=== PATIENT | female | born 1945 | race Caucasian/White ===

== ENCOUNTER → 2019-07-05 08:56 | Outpatient (CLI) | payer MEDICARE, OTHER, SELFPAY ==
--- NOTE | 2019-07-05 | DI.NM.S_ITS ---
PROCEDURE: NM OSMIN PERF SPECT R&S PHARM Rest and pharmacological stress myocardial perfusion SPECT with gated imaging and ejection fraction RADIOPHARMACEUTICAL: 25.2 mCi Tc-99m tetrafosmin IV at rest and 25.8 mCi Tc-99m tetrafosmin IV at peak effect of pharmacological stress. Ywy-meu-uptaarst was performed. INDICATIONS: preprocedural cardiovascular examination TECHNIQUE: Radiopharmaceutical was injected at peak stress test, and also at rest. SPECT images were obtained. SPECT myocardial perfusion images were displayed in short axis, horizontal long axis, and vertical long axis views. Gated images were reviewed using [employer] software. COMPARISON: None. CARDIAC STRESS: A pharmacologic stress test was performed under the supervision of an attending staff, using an infusion of Lexiscan . Hemodynamic data: There is normal blood pressure and heart rate response to pharmacologic stress. Symptoms: The patient denied anginal chest pain. Aminophylline: Not required. EKG: No diagnostic changes of ischemia; no ectopy. FINDINGS: Raw data: There is good myocardial uptake of radiotracer. There is interfering subdiaphragmatic activity. No significant motion artifacts. Gtrn-vw-djgwa ratio is 0.33 (normal is less than 0.38 for tetrafosmin tracer). Left ventricle function: Gated images demonstrate normal left ventricular wall thickening. No segmental wall motion abnormalities. No transient ischemic dilation; TID is 0.67 (normal less than 1.3). Left ventricle resting end diastolic volume is 99 mL. Left ventricle stress ejection fraction is >75%; normal range is above 45%. Myocardial perfusion: There is a small area of mild, fixed perfusion defect in the apical to mid inferior wall both at rest and stress, which actually looks slightly better on stress imaging. This is adjacent to a bowel loop with interfering tracer uptake. Otherwise normal distribution of activity in the left ventricular myocardium. No reversible perfusion defects. IMPRESSION: 1) Probably normal perfusion study. 2) The small inferolateral defect appears to be artefactual and secondary to adjacent bowel loop tracer uptake. No prone imaging was performed to confirm; but normal wall thickening in the same region supports that this is related to artifact and not scar. 3) The previously described anterior wall reversible defect is no longer present. This is a low-risk study. Dictated by: Niles Womack M.D. on 07/08/2019 at 18:07 Approved by: Niles Womack M.D. on 07/08/2019 at 18:14
--- NOTE | 2019-07-05 10:21 | PM.TREADMILL ---
Cardiac Stress Test Report Referral & Results Date Patient Seen: 07/05/19 Requesting provider: Niles Womack Indication: Coronary disease Procedure Note: After both written and verbal informed consent the patient had an IV started by the diagnostic imaging RN, and then was hooked up to the treadmill monitoring system. The Lexiscan material, and then the Cardiolite tracer, were administered sequentially. An additional 3 min was spent monitoring the patient while supine on the gurney. The patient had a normal response to all infused materials. Impression: Please see perfusion imaging report for details regarding possible ischemia Please note: Actual ECG tracings can be found in the PACS system.
== END ==
PROVIDERS: Family Provider Physician Assistant; PCP Physician Assistant; Visit Provider Hospitalist
DX: Z01.810 Encounter for preprocedural cardiovascular examination (principal); I25.10 Atherosclerotic heart disease of native coronary artery without angina pectoris
CPT/HCPCS: 78452; 93016; 93017; 93018; A9502; J2785

== ENCOUNTER → 2019-09-09 13:34 | Outpatient (CLI) | payer MEDICARE, OTHER, SELFPAY ==
--- NOTE | 2019-09-09 | DI.MRI.S_ITS ---
PROCEDURE: MR KNEE RT WO CON INDICATIONS: RIGHT KNEE PAIN TECHNIQUE: Noncontrast sagittal PD fast spin echo and T2 fast spin echo with fat saturation, sagittal 3-D FLASH with fat saturation; coronal T1 spin echo and PD fast spin echo with fat saturation, and axial PD fast spin echo with fat saturation through the knee. COMPARISON: [facility], CR, XR KNEE ARTHRITIC SERIES BI, 05/31/2019, 11:34. FINDINGS: Image quality: Excellent. Menisci: There is linear and amorphous high signal intensity within the anterior horn, body, and posterior horn of the medial meniscus, demonstrating inferior to the service extension, indicating complex tearing. There is fragmentation and amorphous high signal intensity involving the anterior horn, body, and posterior horn of the lateral meniscus, Cruciate li agaments: There is chronic full-thickness tearing of the anterior cruciate ligament. Posterior cruciate ligament is intact. Medial structures: The medial collateral ligament appears intact. There is mild T2 signal elevation surrounding the medial collateral ligament. Visualized portions of the pes anserinus tendons appear normal. Small amount of medial bursal fluid. Lateral structures: The lateral collateral ligament, long and short heads of the biceps femoris tendon appear intact. The popliteus tendon appears normal. Iliotibial band appears normal. Anterior structures: The quadriceps and patellar tendons appear intact. Patellar alignment is normal. No femoral trochlear dysplasia or ventral trochlear prominence. No edema in the infrapatellar fat pad. Bones and cartilage: No bone marrow contusions or fractures. Severe tricompartmental articular osteophyte formation is present. Severe diffuse articular cartilage loss overlies the weightbearing aspects of the lateral femoral condyle and lateral tibial plateau. Severe articular cartilage loss overlies the weightbearing aspects of the medial femoral condyle. Mild articular cartilage loss overlies the weightbearing aspects of the medial tibial plateau. Moderate cartilage loss overlies the patellar apex as well as the adjacent aspects of the medial and lateral patellar facets. Joint space: There is a moderate knee joint effusion and a small Bliss's cyst. There is a small ganglion cyst along the popliteus. Normal appearing synovial plicae are incidentally noted. IMPRESSION: 1. Tricompartmental osteoarthritis with associated articular cartilage loss. 2. Chronic full-thickness anterior cruciate ligament tear. 3. Medial and lateral meniscal tearing. 4. MCL strain. 5. Knee joint effusion, Bliss's cyst, and ganglion cyst along the popliteus. 6. Medial bursitis. Dictated by: Indiana Tan M.D. on 09/09/2019 at 15:30 Approved by: Indiana Tan M.D. on 09/09/2019 at 15:38
== END ==
PROVIDERS: PCP Physician Assistant; Visit Provider Orthopaedic Surgery
DX: M25.561 Pain in right knee (principal); M17.11 Unilateral primary osteoarthritis, right knee; S83.511A Sprain of anterior cruciate ligament of right knee, initial encounter; S83.231A Complex tear of medial meniscus, current injury, right knee, initial encounter; S83.281A Other tear of lateral meniscus, current injury, right knee, initial encounter; S83.411A Sprain of medial collateral ligament of right knee, initial encounter; M25.461 Effusion, right knee; M71.21 Synovial cyst of popliteal space [Baker], right knee; M71.561 Other bursitis, not elsewhere classified, right knee
CPT/HCPCS: 73721

== ENCOUNTER 2019-10-22 06:06 | Inpatient (IN) | payer MEDICARE, OTHER, SELFPAY ==
[2019-10-10 12:51] VITALS: BMI 29.0
[2019-10-22] VITALS (16 sets, daily range): BP systolic 77–122; BP diastolic 46–73; PULSE 78–96; RESP 15–18; TEMP 36.1–36.7; O2SAT 90–98; BMI 28.1
--- NOTE | 2019-10-22 06:00 | DI.RAD.S_ITS ---
PROCEDURE: XR KNEE RT 1TO2V INDICATIONS: post op films TECHNIQUE: 2 view(s) of the knee acquired. COMPARISON: [facility], MR, MR KNEE RT WO CON, 09/09/2019, 14:11. [facility], VANNA, XR BONE LENGTH SCANOGRAM, 08/23/2019, 9:58. [facility], VANNA, XR KNEE ARTHRITIC SERIES BI, 05/31/2019, 11:34. FINDINGS: Bones: Patient is status post knee joint arthroplasty. Hardware components are in expected positions. Visualized bony structures are intact. Soft tissues: Overlying postoperative changes are noted. IMPRESSION: Postoperative knee arthroplasty changes. Dictated by: Allison East M.D. on 10/22/2019 at 10:46 Approved by: Allison East M.D. on 10/22/2019 at 10:46
[2019-10-22] MEDS: LACTATED RINGERS 1,000 ML 42 ML IV ×2 (07:00→09:05)
[2019-10-22] MEDS: VANCOMYCIN 1,000 MG/200 ML PIGGYBACK 200 MG IV (07:12)
[2019-10-22] MEDS: MELOXICAM 7.5 MG TABLET 15 MG PO (07:13)
[2019-10-22] MEDS: ACETAMINOPHEN 325 MG TABLET 975 MG PO (07:13)
--- NOTE | 2019-10-22 07:39 | PM.PREOP ---
Pre-operative Note Interval Note History & Physical reviewed/Exam performed by Physician: Yes Changes to H&P: No
--- NOTE | 2019-10-22 07:40 | PM.OP.1 ---
Operative Date/Time/Diagnoses Date of procedure: 10/22/19 Time of procedure: 07:40 Pre-op diagnosis: right knee OA Post-op diagnosis: same Procedure & Clinicians Procedure: Right total knee arthroplasty Same procedure as scheduled: Yes Indications: The patient has had progressively worsening right knee pain with radiographic changes consistent with arthritis. Non-operative management has failed and the patient has requested total knee replacement. The risks, benefits and alternatives to surgery were discussed with the patient prior to proceeding. Risks discussed included, but were not limited to, failure to relieve pain, stiffness, infection, nerve damage, deep venous thrombosis, pulmonary embolism, stroke, coma, heart attack, permanent paralysis and , as well as the potential need for eventual revision of the prosthetic. Surgeon: Sarah Cabral Pharmacy Sales Representative: Terra Campbell Anesthesia Type: General Operative Notes Findings: Severe right knee osteoarthritis, good balance Closure Type: primary Specimen(s): none sent Prosthetic devices, grafts, tissues, transplants, or devices: [employer]ral [employer] BCS 2 size 5 femur, size 5 tibia, +10 poly, 35 mm oval patella Applied: drain(s) Estimated Blood Loss (mL): 250 Blood products transfused: none Tourniquet time (min): 77 Procedure in detail: The patient was seen in the pre-operative area, where the patient identified the right knee as the operative site and this was marked with my initials. The patient received pre-operative antibiotics, and was taken to the operating room and placed on the operative table in the supine position. After satisfactory anesthesia, a time clock mechanic out was performed. The right leg was encircled with a tourniquet about the proximal thigh, and the leg was prepared from the toes to the tourniquet with ChloroPrep in the usual fashion and draped through sterile drapes. The leg was elevated and exsanguinated with Eschmark bandage and the tourniquet inflated to [250] mmHg pressure. The knee was approached through an approximately 18 cm incision centered over the patella and carried into the knee through a medial parapatellar arthrotomy. a portion of the medial and lateral meniscus was resected. Soft tissue was carefully mobilized around the patella the patella was measured with a caliper. Bone was resected from the patella and the patellar height was reconstituted with up an appropriate sized patellar component. A cover was then placed on the patella. A small amount of additional medial and lateral meniscus was resected. The visionare guide fit well to the distal femur. It looked like an appropriate distal femoral cut and the cut was made without difficulty. The rotation was assessed and the appropriate size femoral guide was placed on the distal femur and finishing cuts were made. There is no evidence of notching. The anterior, posterior and chamfer cuts were then made. The posterior osteophytes and soft tissues were then removed. The posterior capsule was injected with part of a mixture of 60 ml 0.25% Marcaine mixed with 20 ml Exparel for post operative pain control. The remainder of this mixture was injected into the capsule and subcutaneous tissues during cement curing. The tibia was prepared and the visionaire guide fit well to the distal tibia. The rotation was assessed. The patient was placed in extension residual medial and lateral meniscus as well as any residual bone was carefully resected. [No] additional tibia was resected. Hemostasis was achieved especially posteriorly. Additional local was injected into the posterior capsule. The extension gap was assessed and additional releases for gap balancing were performed as necessary. It was checked with the gap mold loft worker. A small amount of additional tibial was resected. The femoral component was trial was placed and the notch was finished. Trial tibial and femoral components were then placed and the knee placed through a range of motion. Range of motion was [0-130], with good stability throughout the range. The trials were then removed, and the tibia was finished. The bone was prepared with pulsatile lavage, and dried with a sponge. Cement was applied and the final prosthetics placed. Excess cement was removed during and after cement curing. A brief Betadine soak was performed. After confirming there was no extruded cement posteriorly, the final tibial insert was placed. The knee was copiously irrigated and the tourniquet deflated. Hemostasis was obtained with the Bovie. A drain was placed and brought out superolaterally. The capsule was closed with interrupted Vicryl suture. The subcutaneous layer was closed with barbed sutures, and the skin with a running 3-0 V-Lock suture and Surgical glue. An Aquacel Ag dressing was applied and the patient was taken to recovery having tolerated the procedure well. Complications: none Post-operative Condition: stable Disposition: Acute Care Plan for aftercare: The patient will be maintained on a standard total knee replacement protocol with weight bearing as tolerated. The patient will receive aspirin and sequential compression devices for DVT prophylaxis. The patient will be discharged home when safe for the home environment.
[2019-10-22] MEDS: CEFAZOLIN 2 GM/100 ML FROZ.PIGGY IV ×2 (07:51→15:29)
[2019-10-22] MEDS: TRANEXAMIC ACID 1,000 MG VIAL 1000 MG INJ ×2 (08:07→10:05)
--- NOTE | 2019-10-22 08:23 | SUR.OPER ---
Supine on padded OR bed. Pillow under head, arms secured on padded armboards <90 degree abduction. Safety belt across torso. Non-operative leg secured with tape over blanket over lower leg. Operative leg secured in DeMayo/Seng positioner. Foam padded brace at thigh of operative leg.
[2019-10-22] MEDS: BUPIVACAINE 0.25% W/ EPI 30 ML VIAL INJ (08:34)
[2019-10-22] MEDS: BUPIVACAINE LIPOSOME 266 MG/20 ML VIAL INJ (08:36)
[2019-10-22] MEDS: SODIUM CHLORIDE IRRIG SOLUTION 250 ML, POVIDONE-IODINE SPONGE STICKS 1 APPLIC IRR (08:37)
--- NOTE | 2019-10-22 10:30 | SUR.PHASEI ---
glucose checked with anesthesia at b.s.= 161, per anesthesia will recheck while pt. in PACU
--- NOTE | 2019-10-22 11:22 | PC.ADMIT ---
[address] Admission Note: The patient,Ana Chau,74 y/o, was given written information regarding hospital policies, unit procedures and contact persons. Patient's smoking status: Never smoker. Vital Signs - 8 hr 10/22/19 06:58 10/22/19 10:11 10/22/19 10:16 Temperature 97.8 F 98.1 F Pulse Rate 96 H 93 H 92 H Respiratory Rate 16 18 17 Blood Pressure 113/73 77/46 L 86/48 L Pulse Oximetry 98 90 L 97 10/22/19 10:20 10/22/19 10:35 10/22/19 10:49 Temperature 97.6 F Pulse Rate 87 82 89 Respiratory Rate 17 16 16 Blood Pressure 97/56 L 93/56 L 94/58 L Pulse Oximetry 98 96 94 Rec'd pt to rm 229 from PACU at 1100. Pt is AO x3, mildly drowsy but able to make needs known. Shen wrap dsg CDI. Pedal pulses present but weaker on right foot compared to left. Pt has decreased sensation but is able to move right foot. Oriented to room, routine, fall risk, use of call light. Completed admission assessment and physical assessment (see chart).
[2019-10-22] MEDS: LACTATED RINGERS 1,000 ML 125 ML IV ×2 (12:11→20:28)
[2019-10-22] MEDS: IBUPROFEN 400 MG TABLET PO ×3 (12:11→22:09)
--- NOTE | 2019-10-22 12:26 | PC.NURSE ---
Addendum entered by Crow Veloz R.N. 10/22/19 14:33: No void so far. Bladder scan performed. Shows 57 ML. Encouraged PO intake but pt c/o nausea. Administered zofran.and positioned for comfort. Will monitor. Original Note: Unclamped hemovac at 1215. Pt able to wiggle toes and move feet off bed. Denies pain. Call light in easy reach.
[2019-10-22] MEDS: ONDANSETRON 4 MG/2 ML INJ IV (14:08)
[2019-10-22] MEDS: METOCLOPRAMIDE 10 MG/2 ML INJ IV (15:29)
[2019-10-22] MEDS: NALOXONE 0.4 MG/ML VIAL IV ×2 (16:51→16:59)
--- NOTE | 2019-10-22 17:08 | PC.NURSE ---
Addendum entered by Ruthie Rizzo R.N. 10/22/19 20:33: 2030 - Pt reports feeling better, but fatigued. Snack provided. Able to take po meds without difficulty. HTN RX held r/t BP. Pt asymptomatic. monitor. Call light in reach. Bed alarm on. Original Note: 1655 - Pt with the appearance of feeling nauseated. Cool cloth to forehead. Vague complaints of feeling unwell. I don't know, I am just, blah. Narcan given x2. Pt unable to report any change. Maybe? offered crackers, pt declined. 1600 - Pt agreeable to participate in physical therapy despite persistent feeling unwell. States that she is use to being active and would like to get out of bed. 1525 - Pt c/o nausea. States that nausea increases with movement. No emesis. Zofran given by Annette FONSECA, Brendan given. Monitor.
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
[2019-10-22] MEDS: ASPIRIN EC 81 MG TABLET PO (20:22)
[2019-10-22] MEDS: DOCUSATE 100 MG CAPSULE PO (20:23)
[2019-10-22] MEDS: METFORMIN HCL 500 MG TABLET 1500 MG PO (20:23)
[2019-10-22] MEDS: ACETAMINOPHEN 325 MG TABLET 650 MG PO (20:23)
[2019-10-22] MEDS: ATORVASTATIN 20 MG TABLET 80 MG PO (20:23)
[2019-10-23 00:30] VITALS: O2SAT 96
[2019-10-23] MEDS: CEFAZOLIN 2 GM/100 ML FROZ.PIGGY IV (00:33)
[2019-10-23 00:40] VITALS: BP 97/56; PULSE 85; RESP 16; TEMP 36.5; O2SAT 95
[2019-10-23 04:00] VITALS: BP 90/56; PULSE 78; RESP 16; TEMP 36.7; O2SAT 97
[2019-10-23] MEDS: IBUPROFEN 400 MG TABLET PO ×2 (04:13→08:28)
[2019-10-23] MEDS: LACTATED RINGERS 1,000 ML 125 ML IV (04:14)
[2019-10-23 04:29] VITALS: O2SAT 95
[2019-10-23 05:10] LABS: Hematocrit 30.7 % (36-46); Hemoglobin 10.4 g/dL (12.0-16.0)
--- NOTE | 2019-10-23 07:35 | PT.IPTN ---
Current Diagnoses Unilateral primary osteoarthritis, right knee (10/22/19) Surgery Performed Operation Date: 10/22/19 07:45 Actual Procedures p Total Knee Arthroplasty(Right) - Sarah Cabral MD Physical Therapy Treatment Note M2 PT-IP Current Condition Start: 10/22/19 14:22 Freq: NEEDED Status: Active Protocol: Document 10/22/19 16:56 AW (Rec: 10/22/19 17:15 AW [id number]) Physical Therapy Current Condition Current Condition Evaluation Date 10/22/19 Treatment Diagnosis R TKA, impaired mobility Onset Date 10/22/19 Weight Bearing Status Weight Bearing Status Weight Bear as Tolerated M3 PT-IP Subjective Start: 10/22/19 14:22 Freq: NEEDED Status: Active Protocol: Document 10/23/19 07:35 SP (Rec: 10/23/19 08:19 SP [id number]) Subjective Physical Therapy Visit Type Type Treatment Note Visit Start Time 07:35 Visit Stop Time 08:01 Total Visit Minutes 26 Number of FACILITIES PLANT ENGINEER Visits 1 Physical Therapy Visit Comments Patient Comments Pt willing to work with PT this am. Patient Goals Pt hopes to discharge home with spouse assist. Therapy Pain Assessment Pain When Pain Assessed During Mobility Pain Present Pain Present Pain Reported Location Left Hip Intensity 2 Pain Behaviors Facial Grimacing Pain Management Techniques Re-positioning,Timing of Activity with Medications M4 PT-IP Mobility and Gait Start: 10/22/19 14:22 Freq: NEEDED Status: Active Protocol: Document 10/23/19 07:35 SP (Rec: 10/23/19 08:19 SP [id number]) PT-Bed Mobility Assessment Supine to Sit Supine to Sit Minimal Assistance Scooting Scooting to Edge of Bed Standby Assistance PT-Transfer Assessment Sit to and From Stand Sit to and from Stand Contact Guard Assistance,Use of Upper Extremities Equipment Transfer Assistive Device Gait Belt,Front Wheeled Walker Transfers Transfer Destination Chair Transfer Technique Pt ambulated with FWW Transfer Ability Level of Assist Contact Guard Assistance,Use of Upper Extremities Comments Mobility Comments Supine to sit SBA with HOB elevated 20deg, min A for support of RLE to EOB, scoot SBA usign BUE. Sit to stand CGA using fWW with good hand placement from bed and FWW. SPT bed to chair step pivot using FWW CGA with assist for IVpole mgt. Pt good hand placement and body with FWW repostioning awarness turns and backing up to chair with slow descent after walk in room. Pt was up in chair with call light and all needs in reach when left. Gait Assessment Gait Gait Assistance Required: Contact Guard Assist Distance (Feet) 20 Able to Maintain Weight Bearing Status Yes During Gait Assistive Devices Assistive Device Gait Belt,Front Wheeled Walker Gait Deviations General Gait Pattern Step-to Gait Factors Limiting Gait Function Factors Limiting Gait Function Decreased Activity Tolerance, Decreased Strength,Limited Range of Motion,Pain Comments Gait Comments Pt was ableto step pivot bed to chair using fWW then walk chair to door and back approx 20 ft using FWW cGA, therapist managed IV pole, stable with good gait phases, knee flexion heel toe. Encourage step over step for normal gait. Stair Climbing Assessment Comments Stair Climbing Comments Not assessed, will assess after lunch today along with caregiver training. PT-Balance Assessment Sitting Balance and Reactions Static Sitting Balance Ability Good Dynamic Sitting Balance Ability Good Standing Balance and Reactions Static Standing Balance Ability Good Dynamic Standing Balance Ability Fair Device Used FWW M5 PT-IP Objective Assessments Start: 10/22/19 14:22 Freq: NEEDED Status: Active Protocol: Document 10/22/19 16:56 AW (Rec: 10/22/19 17:15 AW [id number]) Orientation Orientation/Cognition Level of Alertness Lethargic Orientation Name,Day of Week,Place, Situation Language Function Ability No Deficits Noted Safety Awareness Understands Safety Issues Memory Description No Deficits Noted Gross Range of Motion Lower Extremity ROM Assessment Right Impaired Strength Lower Extremity Strength Assessment Bilaterally Impaired Hip B 4-/5 Ankle B 4/5 Sensation Assessment Sensation Gross Sensation WNL M6 PT-IP Treatment Start: 10/22/19 14:22 Freq: NEEDED Status: Active Protocol: Document 10/23/19 07:35 SP (Rec: 10/23/19 08:19 SP [id number]) Physical Therapy Treatment Exercises Exercises Ankle Pumps,Gluteal Sets,Quad Sets,Heel Slides,Seated Knee Flexion/Extension Education Education Provided Precautions,Weight Bearing Status,Post-Op Packet,Safety M7 PT-IP Assessment and Plan Start: 10/22/19 14:22 Freq: NEEDED Status: Active Protocol: Document 10/23/19 07:35 SP (Rec: 10/23/19 08:19 SP [id number]) PT Summary Assessment and Plan Potential Rehabilitation Potential Good Status of Condition at Evaluation Evolving Summary Impairments ROM,Strength,Balance,Bed Mobility,Transfers,Gait, Activity Tolerance Assessment Summary Pt required Min A for RLE to EOB then SBA scoot to EOB, CGA durign rest of mobiltiy using FWW. Stable vitals: sup 105/ 61 HR 83 bpm 97% on room air, seated 127/75, stand 121/58. Pt was ableto ambulate to door and back CGA usign FWW. Will assess 4WW and stairs in afternoon along with caregiver training in the afternoon for assess safe DC with spouse. PT anticipates pt will progress in follow up sessions and be safe to discharge home with spouse assist and outpatient PT. Will continue to assess. Goals Bed Mobility Goal Standby Assistance Transfer Goal Standby Assistance,Front Wheeled Walker,Four Wheeled Walker Gait Goal Standby Assistance,Front Wheel Walker,Four Wheel Walker Gait Distance 150 Other Goals - up/down 5 steps with right rail ascending and SPC in opposite hand SBA Days to Meet Goals 3 Frequency of Treatment Frequency Of Treatment Twice a Day Treatment Plan Physical Therapy Treatment Plan Bed Mobility Training,Transfer Training,Gait Training, Therapeutic Exercise,Balance Retraining,Post Op Education, Discharge Planning,Hot or Cold Pack,Neuromuscular Re-ed, Coordination Retraining,Manual Therapy Other Recommendations and Next Treatment assess gait with FWW and 4WW ( Focus pt's 4WW in room); review ther ex for form and dosing; trial stairs and conduct caregiver training if able Recommendations To Nursing Amount of Assist Needed 1 Person Assist Discharge Recommendations PT Discharge Recommendations Home with Assistance, Outpatient PT Equipment Needed for Home Before tub transfer bench Discharge Transportation Needs at Discharge Private Vehicle
[2019-10-23 07:54] VITALS: BP 102/59; PULSE 76; RESP 16; TEMP 36.3; O2SAT 96
[2019-10-23] MEDS: DOCUSATE 100 MG CAPSULE PO (08:28)
[2019-10-23] MEDS: ACETAMINOPHEN 325 MG TABLET 650 MG PO (08:28)
[2019-10-23] MEDS: ASPIRIN EC 81 MG TABLET PO (08:28)
--- NOTE | 2019-10-23 08:35 | PM.PNPO.1 ---
Subjective Subjective Date Patient Seen: 10/23/19 Time Patient Seen: 08:13 Interval history: POD #1 s/p RTKA with Dr. Cabral. Patient is doing well. Had nausea yesterday when mobilizing with PT, resolved with zofran. Voiding without difficulty or assistance. Minimal pain in right knee. Denies fever, chills, chest pain, shortness of breath, nausea, vomiting, pain in calves Exam Vital Signs (past 8 hours): - 10/23/19 00:40 10/23/19 04:00 10/23/19 04:29 Temperature 97.7 F 98.0 F Pulse Rate 85 78 Respiratory Rate 16 16 Blood Pressure 97/56 L 90/56 L Pulse Oximetry 95 97 95 10/23/19 07:54 Temperature 97.3 F L Pulse Rate 76 Respiratory Rate 16 Blood Pressure 102/59 L Pulse Oximetry 96 Oxygen Delivery Method Room Air Oxygen Flow Rate 0 Narrative Exam Narrative: 75 year old female is laying comfortably in bed, in no apparent distress. A&Ox3. Aquacel dressing is CDI, hemovacc in place, SCDs in place. Able to actively dorsiflex/plantar flex LE BL. Sensory function grossly intact to light touch in LE BL. Dorsalis pedis 2+ BL. Calves warm, soft, compressible, non tender to palpation. Objective Labs Result Diagrams: 10/23/19 04:40 Labs: Laboratory Results - last 24 hr 10/22/19 10/23/19 11:15 04:40 Hgb 10.4 L Hct 30.7 L Nasal Screen MRSA (PCR) Negative for mrsa Assessment & Plan Post-op Postoperative Procedures: Procedures Operation Date: 10/22/19 07:45 Actual Procedures Side Surgeon p Total Knee Arthroplasty Right Sarah Cabral MD Postoperative plan: discharge Postoperative plan narrative: Patient is doing well, may discharge home today pending PT clearance Clamp hemovacc drain for 2 hours prior to discharge, then discontinue Continue current pain management Continue SCDs for DVT prophylaxis Time Spent With Patient Time with patient: less than 15 minutes
--- NOTE | 2019-10-23 08:50 | PC.NURSE ---
Addendum entered by Crow Veloz R.N. 10/23/19 13:53: Student nurse d/c'd hemovac and PIV with skilled nursing case manager. Pt worked with WHITTLING ROOM OPERATOR and practiced stairs. Pt is motivated to d/c home CB. Original Note: Pt doing well. Up with PT this AM with CGA and FWW. Pt overall denies pain and is mobilizing well. Denies nausea this AM. Clamped hemovac at 0840. Plan is for pt to work with PT again today and d/c hemovac after being clamped x2 hours.
--- NOTE | 2019-10-23 11:47 | CM.DANOTE ---
DCP/Assessment: Reviewed chart. Patient is a 74yr old female admitted for right TKA performed on 10-22-[address] Cabral. Primary payor is 1)Medicare 2)[employer]. PCP listed is Rose Liao. Met with patient explained CM/SW role. Patient reports that she plans to d/c home today. Patient has supportive spouse at home and plans to do outpatient therapy at [facility]. Patient uses walker at baseline and no d/c planning needs identified. P: Home today. MARNIE Platt Discharge Planning/Care Management Advanced directive, confirm from FAMILY Start: 10/22/19 12:00 Freq: Q24H Status: Active Protocol: Document 10/22/19 12:00 JLN (Rec: 10/22/19 12:02 YOAN [id number]) Advance Directive, confirm on record Time 11:00 Person contacted patient Copy received No CM Discharge Assessment Start: 10/23/19 11:39 Freq: Status: Active Protocol: Document 10/23/19 11:40 KJS (Rec: 10/23/19 11:47 KJS [id number]) Discharge Planning Assessment Assigned Residential Carpenter MARNIE Platt Contact Information Alhaji Chau (spouse) [phone] Advance Directives? Yes Advance Directives on File No History Provided By Patient,Family Member,Medical Record Has Patient been admitted in last 30 No days? Prior Living Arrangements House Household Members spouse,children Type of transporation used prior to Drives own vehicle admit Independent with ADL's Yes Is patient alert and oriented? Yes Caregiver for Another Yes DME Already Rented / Owned FWW / Walker Patient/Family Preference OP PT Therapy Barriers to Discharge No Discharge Plan Home Transportation Arrangement Spouse provided transport. Referrals Initiated None needed Whiteboard Updated in Patient Room with Yes name and ext. # of Residential Carpenter Review Status In Process Next Review Type Continued Stay Review Pre-Anesthesia Assessment Start: 10/10/19 12:50 Freq: Status: Complete Protocol: Document 10/10/19 12:51 CAB (Rec: 10/10/19 13:51 CAB [id number]) Pre-Anesthesia Assessment Patient Information Reviewed Via Phone Assessment Assessment Completed With Patient H&P Completed Within 30 Days Yes Diagnostic Results BMP/CMP,CBC,EKG Comment Outside labs/EKG scanned to record Primary Care Provider Arsenio Harris Medical Clearance Received Yes Seen Specialist in Last 12 Months Yes Specialist Seen Basketball Player,Alarm Operator, Orthopedist Comment PCP clearance 08/13/19 scanned to record Primary Language Faroese Fish Cutting Machine Operator Required No Height 170.18 cm Weight 83.915 kg Body Mass Index (BMI) 29.0 Hearing Ability Normal Visual Assist Glasses Dentition Type Teeth, Natural Present,Full- Upper Barriers to Learning None Other Aids No Hx Anesthesia Reactions No Hx Family Anesthesia Reaction No Hx Malignant Hyperthermia No Hx Blood Transfusions No Anesthesia Review Requested Yes: Surgeon requested re: Cardiac history alcohol intake never Smoking Status Never smoker Substance Use Type does not use Pain Present Pain Reported Musculoskeletal Symptoms Abnormal Gait,Difficulty Walking,Joint Pain,Limited Range of Motion,Numbness History of Falling (Recent or History of No ) Patient is completely paralyzed or No completely immobile Prosthesis or Orthotic Device Front Wheel Walker Mental Status Oriented to own ability Is patient on oxygen? No Does patient have BARRON/SOB No Hx Sleep Apnea No Currently Taking a Beta Clarence No Can You Climb a Flight of Stairs Without No SOB Hx Chest Pain No Hx SOB No Hx Syncope or Dizziness No Anti-Coagulant Therapy Yes: 81mg ASA only-pt will check to see if she is to hold or continue Has a Basketball Player Yes: Cardiac Testing Yes: Nuc scan 07/05/19 @ [facility]-low risk study Hx Pacemaker/ICD No Pacemaker Rep Required? No Cardiac Clearance Received Yes Diet Type At Home Regular dysphagia No Urinary Catheter Present No Hx Urinary Self Catheterization No Diabetes Yes: Does not check blood sugars at home HgbA1C 6.5 Date 08/13/19 Patient No Lactating No Presence of External or Internal Medical Yes: Cardiac stent, plate left Devices ankle Have you traveled outside the [facility] States in the last 30 days? Marital Status Lives With spouse,children Prior Living Arrangements House Number of Floors (Floors) Two Floors Support System Spouse Does the Patient Have Assistance After Yes Surgery Patient Discharge Plan Description Return Home Comment Pt advised 1-2 day length of stay per surgeon Feels Safe in Current Environment Yes Been Physically Hurt or Threatened By a No Person in Current Environment Do you have thoughts of harming yourself None or others? Are you currently considering suicide? No Do you have a plan to hurt yourself or No Plan others? Do You Have Any Spiritual Beliefs That No May Affect Your HC Choices? Do You Have Any Cultural Practices That No May Affect Your HC Choices? Comment Chris Who Can We Speak to About Patient's Care Family, friends Identifying Code for Release of Patient Declines to issue Information Health Care Proxy/Next of Kin Alhaji () Health Care Proxy Emergency Contact Name Alhaji () Emergency Contact Advance Directives? Yes Advance Directives on File No Requested Patient Bring Advanced Yes Directives DOS Power of Smalltalk Developer No PAC Instructions Do not shave/clip surgical site,Durable medical equipment ,Medications to take/avoid, Nasal antibiotic,No ETOH/ petroleum product on skin DOS, NPO,Post-op transportation,Pre -surgical wash,Sturdy shoes/ comfortable clothes,Do not bring valuables and remove jewelry
--- NOTE | 2019-10-23 13:49 | PT.IPTN ---
Current Diagnoses Unilateral primary osteoarthritis, right knee (10/22/19) Surgery Performed Operation Date: 10/22/19 07:45 Actual Procedures p Total Knee Arthroplasty(Right) - Sarah Cabral MD Physical Therapy Treatment Note M2 PT-IP Current Condition Start: 10/22/19 14:22 Freq: NEEDED Status: Active Protocol: Document 10/22/19 16:56 AW (Rec: 10/22/19 17:15 AW [id number]) Physical Therapy Current Condition Current Condition Evaluation Date 10/22/19 Treatment Diagnosis R TKA, impaired mobility Onset Date 10/22/19 Weight Bearing Status Weight Bearing Status Weight Bear as Tolerated M3 PT-IP Subjective Start: 10/22/19 14:22 Freq: NEEDED Status: Active Protocol: Document 10/23/19 13:01 SP (Rec: 10/23/19 14:12 SP [id number]) Subjective Physical Therapy Visit Type Type Treatment Note Visit Start Time 13:01 Visit Stop Time 13:49 Total Visit Minutes 48 Notes Spouse Alhaji completed caregiver training withpatient including gait belt donned, transfer, gait, stair mgt. Number of GROUND WORKER Visits 2 Physical Therapy Visit Comments Patient Comments Pt willing to work with PT. Patient Goals Pt plans to DC today with . Therapy Pain Assessment Pain When Pain Assessed During Mobility Pain Present Pain Present Pain Reported Location Left Hip Intensity 2 Pain Behaviors Facial Grimacing Pain Management Techniques Apply Cold,Re-positioning M4 PT-IP Mobility and Gait Start: 10/22/19 14:22 Freq: NEEDED Status: Active Protocol: Document 10/23/19 13:01 SP (Rec: 10/23/19 14:12 SP [id number]) PT-Bed Mobility Assessment Sit to Supine Sit to Supine Standby Assistance Scooting Scooting Up and Down in Bed Standby Assistance PT-Transfer Assessment Sit to and From Stand Sit to and from Stand Standby Assistance,Contact Guard Assistance,Use of Upper Extremities Equipment Transfer Assistive Device Gait Belt,4 Wheeled Walker Orthotic/Prosthetic Devices or Brace: No Transfers Transfer Destination Bed,Wheelchair Transfer Technique Pt ambulated using 4WW. Transfer Ability Level of Assist Standby Assistance,Contact Guard Assistance,Use of Upper Extremities Comments Mobility Comments Pt was up in chair when arrived, spouse Alhaji in room. Caregiver training completed including gait belt donned properly, provided SBA-CGA educated safety brake mgt with 4WW with good demonstration using proper hand placement BUE pushing from chair arms to stand. Pt complete multiple sit to stands and SPT usign 4WW with proper positioning and 4WW brake mgt post education follow through in to w/c while out for a walk and stair mgt. Sitting to supine on R side of bed with RLE helping RLE into bed and centering and scooting up in bed SBA no assist required from spouse for bedmobility. Pt was in bed with call light and all needs in reach when left. GROUND WORKER discussed progress made with nursing for safe DC home today when medically cleared. Gait Assessment Gait Gait Assistance Required: Contact Guard Assist Distance (Feet) 75 Able to Maintain Weight Bearing Status Yes During Gait Assistive Devices Assistive Device Gait Belt,4 Wheeled Walker Gait Deviations General Gait Pattern Antalgic,Decreased Stride Length,Decreased Feet Clearance,Flexed Trunk,Step-to Gait Factors Limiting Gait Function Factors Limiting Gait Function Decreased Activity Tolerance, Decreased Strength,Limited Range of Motion,Pain Comments Gait Comments Pt was able to walk chair into hallway further distance using 4WW 75 ft x2 with w/c follow secondary to decreased activity tolerance and strength, spouse provided CGA for safety, patient demonstrated WB through LUE > RUE but good brake mgt during each step, stable and safe using at home, not recommending need of FWW. Educated patient and spouse importance of R knee bend and heel toe gait to continue to progress toward normal gait patterning and decrease R hip elevation during advancement. Stair Climbing Assessment Evaluation Level of Assist On Stairs Contact Guard Assistance,1 Person Assistance Devices Stair Climbing Assistive Devices Straight Cane,Left Railing, Right Railing Technique/Endurance Stair Climbing Direction Ascend and Descend Stair Climbing Technique Step to Step Number of Steps Climbed 3 Stair Climbing Set # Repetitions (reps) 2 Comments Stair Climbing Comments Pt was ableto ascend and descend 3 stairs using BHR initially to assimulate outside home environment then assessed inside home stair mgt RHR and SPC in LUE CGA on second set of stairs with CGA provided by spouse and good cuing of awareness of R knee flexion to assist foot clearance and ascend to next step with good follow through demonstration. PT-Balance Assessment Sitting Balance and Reactions Static Sitting Balance Ability Good Dynamic Sitting Balance Ability Good Standing Balance and Reactions Static Standing Balance Ability Good Dynamic Standing Balance Ability Fair Device Used 4WW M5 PT-IP Objective Assessments Start: 10/22/19 14:22 Freq: NEEDED Status: Active Protocol: Document 10/22/19 16:56 AW (Rec: 10/22/19 17:15 AW [id number]) Orientation Orientation/Cognition Level of Alertness Lethargic Orientation Name,Day of Week,Place, Situation Language Function Ability No Deficits Noted Safety Awareness Understands Safety Issues Memory Description No Deficits Noted Gross Range of Motion Lower Extremity ROM Assessment Right Impaired Strength Lower Extremity Strength Assessment Bilaterally Impaired Hip B 4-/5 Ankle B 4/5 Sensation Assessment Sensation Gross Sensation WNL M6 PT-IP Treatment Start: 10/22/19 14:22 Freq: NEEDED Status: Active Protocol: Document 10/23/19 13:01 SP (Rec: 10/23/19 14:12 SP [id number]) Physical Therapy Treatment Education Education Provided Precautions,Weight Bearing Status,Post-Op Packet,Safety Other Treatments Other Treatment Performed GROUND WORKER educated patient and spouse importance of continued performance of exercises including knee flexion and extension to progress in ROM and walking around every hour at home to continue strength until outpatient appt next week, verbal confirmation. M7 PT-IP Assessment and Plan Start: 10/22/19 14:22 Freq: NEEDED Status: Active Protocol: Document 10/23/19 13:01 SP (Rec: 10/23/19 14:12 SP [id number]) PT Summary Assessment and Plan Potential Rehabilitation Potential Good Status of Condition at Evaluation Evolving Summary Impairments ROM,Strength,Balance,Bed Mobility,Transfers,Gait, Activity Tolerance Assessment Summary Pt required SBA sit>supine, CGA sit to stand, gait and stair mgt using 4WW, and stair mgt BHR or R HR and SPC LUE. Pt was able to ambulate further distance 75 ft x2 using 4WW, CGA from provided and w/c follow seondary to decreased strength and edurance to get to stairs . Pt is ok to DC with spouse to assist at home and recommending outpatient PT when medically cleared. Goals Bed Mobility Goal Standby Assistance Transfer Goal Standby Assistance,Front Wheeled Walker,Four Wheeled Walker Gait Goal Standby Assistance,Front Wheel Walker,Four Wheel Walker Gait Distance 150 Other Goals - up/down 5 steps with right rail ascending and SPC in opposite hand SBA Days to Meet Goals 3 Frequency of Treatment Frequency Of Treatment Twice a Day Treatment Plan Physical Therapy Treatment Plan Bed Mobility Training,Transfer Training,Gait Training, Therapeutic Exercise,Balance Retraining,Post Op Education, Discharge Planning,Hot or Cold Pack,Neuromuscular Re-ed, Coordination Retraining,Manual Therapy Other Recommendations and Next Treatment assess gait with FWW and 4WW ( Focus pt's 4WW in room); review ther ex for form and dosing; trial stairs and conduct caregiver training if able- completed pm Recommendations To Nursing Amount of Assist Needed Standby Assistance Discharge Recommendations PT Discharge Recommendations Home with Assistance, Outpatient PT Equipment Needed for Home Before tub transfer bench Discharge Transportation Needs at Discharge Private Vehicle
--- NOTE | 2019-10-23 14:34 | PC.NURSE ---
Pt dc'd to home per MD order. Provided d/c education re knee precautions, medication regimen, follow up instructions, when to seek emergency medical treatment. Pt and verbalize understanding. Pt dressed self with min assist from her . Transferred to w/c and escorted to POV by SN via w/c in no acute distress with all belongings.
== END 2019-10-23 14:30 | disposition home or self-care (01) | DRG 470 ==
LOC: AC 07:45 → ICU 08:19
PROVIDERS: Admitting Provider Orthopaedic Surgery; PCP Physician Assistant; Referring Provider Orthopaedic Surgery; Visit Provider Orthopaedic Surgery
PROC: 0SRC0JZ Replacement of Right Knee Joint with Synthetic Substitute, Open Approach (ICD-10-PCS; CPT 27447; principal; 2019-10-22 07:45)
DX: M17.11 Unilateral primary osteoarthritis, right knee (principal); I10 Essential (primary) hypertension; E78.5 Hyperlipidemia, unspecified; E11.9 Type 2 diabetes mellitus without complications; Z79.84 Long term (current) use of oral hypoglycemic drugs; I25.10 Atherosclerotic heart disease of native coronary artery without angina pectoris; M21.061 Valgus deformity, not elsewhere classified, right knee; Z95.818 Presence of other cardiac implants and grafts
CPT/HCPCS: 36415; 73560; 82962; 85014; 85018; 87797; 97110; 97116; 97161; 97530; C1776; C9290; J0690; J1100; J2250; J2274; J2310; J2405; J2704; J2765; J3010

== ENCOUNTER → 2020-06-19 10:54 | Outpatient (CLI) | payer MEDICARE, OTHER, SELFPAY ==
[2019-10-22 11:00] VITALS: BMI 28.1
--- NOTE | 2020-06-19 | DI.MRI.S_ITS ---
PROCEDURE: MR LUMBAR SPINE WO CON INDICATIONS: Radiculopathy, lumbar region TECHNIQUE: Noncontrast sagittal T1 spin echo and T2 fast echo, sagittal STIR, axial T1 and T2 fast spin echo through the lumbar spine. In cases with scoliosis, additional coronal T2 fast spin echo may be performed. COMPARISON: [facility] [place], CR, XR LUMBAR SPINE 2 OR 3 VIEWS, 06/10/2020, 10:02. [facility], MR, L-SPINE WITHOUT CONTRAST, 05/21/2013, 14:34. FINDINGS: Image quality: Excellent. Alignment and Curvature: There is mild L4-L5 anterolisthesis. There is trace L2-L3 retrolisthesis. Convex left curvature of the lumbar spine is noted. Bone Marrow: Reactive endplate changes noted adjacent to the L3-L4 and L4-L5 discs. No acute vertebral body compression fractures. Spinal Cord: Conus medullaris terminates at the L1-2 disc level. Visualized cord demonstrates normal signal and size. Paraspinous Soft Tissues: No paravertebral masses. Large exophytic, partially visualized right renal cyst. L1-L2: Loss of disc signal and height. Moderate, diffuse disc bulge. Mild bilateral facet hypertrophy. Mild narrowing of the central canal. Mild left neural foraminal narrowing. No neural compression. L2-L3: Loss of disc signal and height. Moderate, diffuse disc bulge. Mild bilateral facet hypertrophy. Mild narrowing of the central canal. Moderate right and mild left neural foraminal narrowing. No neural compression. L3-L4: Loss of disc signal and height. Mild to moderate diffuse disc bulge. Mild facet and mild ligamentum flavum hypertrophy. Moderate narrowing of the central canal. Moderate bilateral neural foraminal narrowing. No neural compression. L4-L5: Loss of disc signal and height. Moderate, diffuse disc bulge. Severe bilateral facet hypertrophy. Severe ligamentum flavum hypertrophy. Severe narrowing of the central canal with compression of the nerve roots of the cauda equina. Moderate bilateral neural foraminal narrowing. There is a large 0.9 x 0.8 x 1.9 centimeter synovial cyst projecting off the medial margin of the right facet. Synovial cyst cyst is oriented medially and superiorly and displaces the nerve roots of the cauda equina at the level of the L4 vertebral body. L5-S1: Loss of disc signal and height. Mild, diffuse disc bulge. Moderate right and severe left facet hypertrophy. Mild to moderate narrowing of the central canal. Severe bilateral neural foraminal narrowing with compression of the exiting L5 nerve roots. Bilateral L2-L3 Tarlov cysts. IMPRESSION: 1. Grade 1 L4-L5 degenerative spondylolisthesis. 2. Multilevel degenerative disc disease. 3. Multilevel facet arthropathy. 4. Severe L4-L5 central canal narrowing with compression of the nerve roots of the cauda equina. 5. Severe bilateral L5-S1 neural foraminal narrowing with compression of the exiting bilateral L5 nerve roots. 6. Large right L4-L5 facet synovial cyst. Dictated by: Cyndy Mcguire MD, PhD on 06/19/2020 at 12:47 Approved by: Cyndy Mcguire MD, PhD on 06/19/2020 at 12:54
== END ==
PROVIDERS: PCP Physician Assistant; Referring Provider Orthopaedic Surgery; Visit Provider Orthopaedic Surgery
DX: M43.16 Spondylolisthesis, lumbar region (principal); M51.16 Intervertebral disc disorders with radiculopathy, lumbar region; M51.17 Intervertebral disc disorders with radiculopathy, lumbosacral region; M47.26 Other spondylosis with radiculopathy, lumbar region; M47.27 Other spondylosis with radiculopathy, lumbosacral region; M48.061 Spinal stenosis, lumbar region without neurogenic claudication; M48.07 Spinal stenosis, lumbosacral region; M71.38 Other bursal cyst, other site
CPT/HCPCS: 72148

== ENCOUNTER → 2020-10-26 09:37 | Outpatient (CLI) | payer MEDICARE, OTHER, SELFPAY ==
[2019-10-22 11:00] VITALS: BMI 28.1
[2020-10-26 11:14] LABS: COVID19 -Nasal RAPID Negative (Negative)
== END ==
PROVIDERS: PCP Physician Assistant; Visit Provider Nurse Practitioner Family
DX: Z01.812 Encounter for preprocedural laboratory examination (principal); Z20.822 Contact with and (suspected) exposure to COVID-19
CPT/HCPCS: 87635; C9803

== ENCOUNTER 2020-10-27 05:56 | Day surgery (SDC) | payer MEDICARE, OTHER, SELFPAY ==
[2019-10-22 11:00] VITALS: BMI 28.1
[2020-10-27] VITALS (20 sets, daily range): BP systolic 86–144; BP diastolic 52–81; PULSE 55–103; RESP 14–22; TEMP 35.9–36.9; O2SAT 92–100; BMI 28.8
[2020-10-27] MEDS: LACTATED RINGERS 1,000 ML 42 ML IV ×2 (07:05→10:07)
[2020-10-27] MEDS: VANCOMYCIN 1,000 MG/200 ML PIGGYBACK 200 MG IV (07:06)
--- NOTE | 2020-10-27 07:36 | P.OP_ITS ---
Operative Date/Time/Diagnoses Date of procedure: 10/27/20 Time of procedure: 07:59 Pre-op diagnosis: left hip OA Post-op diagnosis: same Procedure & Clinicians Procedure: left total hip arthroplasty Same procedure as scheduled: Yes Indications: The patient has had progressively worsening left hip pain with radiographic changes consistent with arthritis. Non-operative management has failed and the patient has requested total hip replacement. The risks, benefits and alternatives to surgery were discussed with the patient prior to proceeding. Risks discussed included, but were not limited to, failure to relieve pain, leg length discrepancy, dislocation, stiffness, infection, nerve damage, deep venous thrombosis, pulmonary embolism, stroke, coma, heart attack, permanent paralysis and , as well as the potential need for eventual revision of the prosthetic. Surgeon: Sarah Cabral Combination Machine Tool Setter: Rob Hernandez Click Yes if Unassisted: Yes Anesthesia Type: General and Spinal Operative Notes Findings: severe left hip arthritis, adequate stability, soft bone Closure Type: primary Prosthetic devices, grafts, tissues, transplants, or devices: Cabral and Nephew 52 R3 acetabulum, 14 Synergy standard offset, +0 36 head, one 20mm screw Applied: drain(s) Estimated Blood Loss (mL): 250 Blood products transfused: none Procedure in detail: The patient was seen in the pre-operative area, where the patient identified the left hip as the operative site and this was marked with my initials. The patient received pre-operative antibiotics and was taken to the operating room and placed on the operative table in the right lateral decubitus position after satisfactory anesthesia. A realtime captioner out was performed. The left leg was prepared from the ankle to the iliac crest with ChloroPrep in the usual fashion and draped through sterile drapes. The hip was approached through an approximately 20 cm incision centered over the greater trochanter and curving gently posteriorly as it went proximally. This was carried sharply to the fascia owen, which was divided and retracted with a self retaining retractor. The trochanteric bursa was excised with care being taken to avoid the sciatic nerve, which was identified and protected throughout the case. The short external rotators were incised and the capsulomuscular flap was raised and tagged for later repair. The hip was dislocated, and a femoral neck osteotomy performed approximately 15 mm above the lesser trochanter. Retractors were placed around the femur. The canal was opened with a box cutting osteotome, followed by a T handled reamer and a lateralizing reamer. The chili pepper broach was then used, followed by sequential broaching until there was good stability of the broach in the femur. she had soft bone and I decided to go with a Synergy. Good stability was achieved. Retractors were placed to expose the acetabulum. The labrum and central soft tissues were removed. Reaming was performed initially going up in 2 mm increments, then 1 mm increments until good bite was obtained with an odd sized reamer. The cup 1 mm larger than the last reamer was then inserted using the appropriate anteversion guides. it was further stabilized with a single screw. A trial neutral liner was placed. The broach was placed in the canal. A trial head and neck were then placed and the hip relocated and checked for leg length and stability. An intraoperative film confirmed the component position and no evidence of fracture. The patient was stable in the position of sleep, of squatting, and could be put through a range of motion with 45 degrees internal rotation without dislocation. At 90 degrees flexion, internal rotation to 70 Degrees was possible before dislocation. This was felt to be satisfactory and the appropriate components were opened, and the trials were removed. The acetabular liner was impacted into position. The final stem was then impacted into the prepared femoral canal. A brief Betadine soak was performed while trialing with head options. The hip was meticulously irrigated with normal saline. Finally the femoral head was impacted onto the stem. The acetabulum was cleared of all material and the hip relocated one final time. The capsulomuscular flap was then repaired to the greater trochanter though an awl hole using the tag sutures. The short external rotators were repaired with a nonabsorbable suture. A deep drain was placed and brought out anteriorly. The fascia owen was closed with Vicryl. The subcutaneous layer was closed with barbed sutures and SteriStrips. An Aquacel Ag dressing was applied and the patient was taken to recovery having tolerated the procedure well. Complications: none Post-operative Condition: stable Disposition: Acute Care Plan for aftercare: The patient will be maintained on a standard total hip replacement protocol with weight bearing as tolerated and posterior hip precautions. The patient will receive Aspirin and sequential compression devices for DVT prophylaxis. The patient will be discharged home when safe for the home environment.
--- NOTE | 2020-10-27 07:36 | PM.PREOP ---
Pre-operative Note COVID-19 COVID-19 status: Negative Interval Note History & Physical reviewed/Exam performed by Physician: Yes Changes to H&P: No
[2020-10-27] MEDS: CEFAZOLIN 2 GM/100 ML FROZ.PIGGY IV ×3 (08:05→23:46)
--- NOTE | 2020-10-27 08:41 | SUR.OPER ---
Lateral on padded OR bed. Gel axillary roll. Arms secured on padded armboard with pillow supporting top arm. Padded hip positioner braces x4 - anterior and posterior chest and pelvis. Additional gel pad used anterior pelvis. Gel pad under bottom leg from knee to foot and secured with tape over sheet.
[2020-10-27] MEDS: TRANEXAMIC ACID 1,000 MG VIAL 2000 MG INJ ×2 (08:47→09:48)
[2020-10-27] MEDS: BUPIVACAINE LIPOSOME 266 MG/20 ML VIAL INJ (08:58)
[2020-10-27] MEDS: BUPIVACAINE 0.5% W/ EPI (PF) 30 ML VIAL INJ (08:59)
[2020-10-27] MEDS: EPINEPHrine 1 MG/ML IM (09:01)
[2020-10-27] MEDS: SODIUM CHLORIDE IRRIG SOLUTION 250 ML, POVIDONE-IODINE SPONGE STICKS 1 APPLIC IRR (09:02)
--- NOTE | 2020-10-27 09:39 | DI.RAD.S_ITS ---
PROCEDURE: XR PELVIS 1-2V INDICATIONS: INNER OP XRAY TECHNIQUE: 1 view of the lower pelvis acquired. COMPARISON: [facility] [place], CR, XR PELVIS WITH BILATERAL LATERAL HIPS, 07/01/2020, 9:50. [facility], [place], XR HIP W PEL IF DONE LT 2V, 10/27/2020, 10:19. FINDINGS: Intraoperative right hip arthroplasty localization images. Stable left arthroplasty. IMPRESSION: Intraoperative arthroplasty images. Dictated by: Allison East M.D. on 10/27/2020 at 10:26 Approved by: Allison East M.D. on 10/27/2020 at 10:28
[2020-10-27] MEDS: fentaNYL 100 MCG/2 ML INJ IV ×3 (10:48→11:01)
--- NOTE | 2020-10-27 11:00 | DI.RAD.S_ITS ---
PROCEDURE: XR HIP W PEL IF DONE LT 2V INDICATIONS: POST OP LEFT TOTAL HIP TECHNIQUE: 2 view(s) of the hip acquired. COMPARISON: None. FINDINGS: Bones: Patient is status post left hip arthroplasty, with hardware components in expected positions. The hip joint appears congruent. The visualized bony structures appear intact. Soft tissues: Overlying postoperative changes are noted. No suspicious soft tissue densities. IMPRESSION: Normal alignment after left total hip arthroplasty, with a surgical drain overlying the superior operative bed. Dictated by: Vazquez Casarez M.D. on 10/27/2020 at 11:12 Approved by: Vazquez Casarez M.D. on 10/27/2020 at 11:13
[2020-10-27] MEDS: OXYCODONE IR 5 MG TABLET PO ×2 (11:10→14:38)
[2020-10-27] MEDS: LACTATED RINGERS 1,000 ML 125 ML IV ×2 (12:30→23:48)
[2020-10-27] MEDS: IBUPROFEN 400 MG TABLET PO ×3 (12:33→21:10)
--- NOTE | 2020-10-27 12:56 | PC.ADMIT ---
[address] Admission Note:Safe hand off from PACU. Patient is resting comfortably, reports pain at 4/10. VSS. Lung sounds are clear and patient is on room air. Patient has TESFAYE dressing CDI and blinking green. Patient educated about the use of call light, bed is low and locked and call light is within reach. Bed alarm is active. The patient,Ana Chau,75 y/o, was given written information regarding hospital policies, unit procedures and contact persons. Patient's smoking status: Never smoker. Vital Signs - 8 hr 10/27/20 07:13 10/27/20 10:22 10/27/20 10:28 Temperature 97.5 F L Pulse Rate 103 H 79 60 Respiratory Rate 20 16 18 Blood Pressure 144/81 H 86/65 L 99/53 L Pulse Oximetry 100 98 97 10/27/20 10:37 10/27/20 10:42 10/27/20 10:54 Temperature Pulse Rate 59 L 59 L 63 Respiratory Rate 16 16 16 Blood Pressure 108/60 96/65 109/54 L Pulse Oximetry 94 92 93 10/27/20 10:58 10/27/20 11:02 10/27/20 11:15 Temperature Pulse Rate 78 55 L 57 L Respiratory Rate 17 20 14 Blood Pressure 116/60 120/57 L 123/62 Pulse Oximetry 96 100 100 10/27/20 11:27 10/27/20 11:50 Temperature 98.2 F 96.7 F L Pulse Rate 58 L 60 Respiratory Rate 22 14 Blood Pressure 125/63 137/69 Pulse Oximetry 100 95
[2020-10-27] MEDS: ACETAMINOPHEN 325 MG TABLET 650 MG PO ×2 (14:38→21:11)
--- NOTE | 2020-10-27 14:45 | PC.NURSE ---
Patient up with PT, and said she felt a slip in her left hip. Sophie in PT stated that she heard a pop when the patient got up from commode and was weight bearing. I telephoned Dr. Cabral at 1445, she said she would come up and take a look at the patient.
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
--- NOTE | 2020-10-27 15:36 | DI.RAD.S_ITS ---
PROCEDURE: XR HIP W PEL IF DONE RT 2V INDICATIONS: INJURY POST OP NURSE SAID SHE HEARD A POP TECHNIQUE: AP pelvis and lateral view of the left hip acquired. COMPARISON: [facility] [place], CR, XR PELVIS WITH BILATERAL LATERAL HIPS, 07/01/2020, 9:50. [facility] With [facility], CR, XR HIP W PEL IF DONE LT 2V, 10/27/2020, 10:19. Merged With [facility], CR, XR PELVIS 1-2V, 10/27/2020, 9:07. FINDINGS: Bones: Patient is status post left hip arthroplasty, with hardware components in expected positions. The hip joint appears congruent. The visualized bony structures appear intact. Note is made of moderate right hip joint degeneration. Soft tissues: Overlying postoperative changes are noted. There is a surgical drain in the left thigh. No suspicious soft tissue densities. IMPRESSION: Expected postsurgical changes after total hip arthroplasty. Dictated by: Yari Ellis M.D. on 10/27/2020 at 16:14 Approved by: Yari Ellis M.D. on 10/27/2020 at 16:16
[2020-10-27] MEDS: METFORMIN HCL 500 MG TABLET 1500 MG PO (21:10)
[2020-10-27] MEDS: TRIAMTERENE/HCTZ 37.5/25 TABLET 1 CAP PO (21:10)
[2020-10-27] MEDS: ASPIRIN EC 81 MG TABLET PO (21:10)
[2020-10-27] MEDS: ATORVASTATIN 20 MG TABLET 80 MG PO (21:10)
[2020-10-27] MEDS: lisinopriL 20 MG TABLET 40 MG PO (21:10)
[2020-10-27] MEDS: DOCUSATE 100 MG CAPSULE PO (21:10)
[2020-10-28] MEDS: IBUPROFEN 400 MG TABLET PO ×4 (00:59→14:35)
--- NOTE | 2020-10-28 03:08 | PC.NURSE ---
Addendum entered by Olivia Lopez R.N. 10/28/20 05:14: States pain is 4/10, achy at rest and sharp with movement; medicated with scheduled Ibuporfen and declined other pain medication. Original Note: 6922: patient is alert and oriented. Breath sounds CTA with RA sat of 96%. HRR. BP low at 96/52 and has been intermittently low; asymptomatic. Denies nausea. BT present and has passed flatus. Denies dysuria, frequency or urgency. Able to move self in bed. Gait not assessed yet but evening RN reports patient requiring walker and 2 assists to get up to BSC. TESFAYE dressing to left hip is intact and functioning; no drainage. Hemovac is intact and compressed. CMS intat bilaterally and is wearing bilateral calf SCD's. States pain is minimal at 3/10 and tolerable declining pain medication other than Ibuprofen which is scheduled to 0100. Declines offer of ice pack. Fall risk score is high and bed alarm is activated.
[2020-10-28 06:00] VITALS: BP 137/80; PULSE 83; RESP 16; TEMP 37.1; O2SAT 99
[2020-10-28 06:19] LABS: Hematocrit 27.7 % (36-46); Hemoglobin 9.2 g/dL (12.0-16.0)
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
[2020-10-28 08:05] VITALS: BP 111/64; PULSE 72; RESP 15; TEMP 36.4; O2SAT 98
[2020-10-28] MEDS: ASPIRIN EC 81 MG TABLET PO (08:10)
[2020-10-28] MEDS: ACETAMINOPHEN 325 MG TABLET 650 MG PO ×2 (08:10→14:36)
[2020-10-28] MEDS: VITAMIN B COMPLEX 1 CAPSULE 1 CAP PO (08:11)
[2020-10-28] MEDS: OXYCODONE IR 5 MG TABLET PO ×2 (08:11→16:04)
[2020-10-28] MEDS: DOCUSATE 100 MG CAPSULE PO (08:13)
[2020-10-28] MEDS: FISH OIL 1,000 MG CAPSULE 2000 MG PO (08:13)
[2020-10-28] MEDS: CHOLECALCIFEROL (VITAMIN D3) 400 UNIT TABLET PO (08:17)
--- NOTE | 2020-10-28 08:30 | PC.NURSE ---
RN student and Instructor discontinued Hemovac per orders. The cather tip was intact and the patient tolerated it well. Presure was held and there was no Bleeding.Tegederm applied over gauze.
--- NOTE | 2020-10-28 09:50 | PT.IPTN ---
Current Diagnoses Bilateral primary osteoarthritis of hip (10/27/20) Unilateral primary osteoarthritis, left hip (10/27/20) Surgery Performed Operation Date: 10/27/20 07:45 Actual Procedures p Total Hip Arthroplasty(Left) - Sarah Cabral MD Physical Therapy Treatment Note M2 PT-IP Current Condition Start: 10/27/20 13:21 Freq: NEEDED Status: Active Protocol: Document 10/27/20 14:43 AW (Rec: 10/27/20 15:37 AW [id number]) Physical Therapy Current Condition Current Condition Evaluation Date 10/27/20 Treatment Diagnosis L JESSICA; difficulty in walking; impaired mobility Onset Date 10/27/20 Precautions Posterior Hip Precautions No Hip Flexion > 90 degrees,No Hip Internal Rotation,No Hip Adduction Other Precautions TESFAYE and hemovac drains in place Weight Bearing Status Weight Bearing Status Weight Bear as Tolerated M3 PT-IP Subjective Start: 10/27/20 13:21 Freq: NEEDED Status: Active Protocol: Document 10/28/20 09:04 LD (Rec: 10/28/20 13:37 LD [id number]) Subjective Physical Therapy Visit Type Type Treatment Note Visit Start Time 09:04 Visit Stop Time 09:50 Total Visit Minutes 46 Notes SPTA co-led tx w/ C SOFTWARE ENGINEER Rachana. coming in at 2pm for caregiver training. Physical Therapy Visit Comments Patient Comments Pt is willing to participate with PT Patient Goals Return home to recover and attend outpatient PT Therapy Pain Assessment Pain When Pain Assessed During Weight Bearing Pain Present Pain Present Pain Reported Location Left Hip Intensity 4 Scale Used Numeric (0 - 10) Description Aching,Sharp,With Movement Pain Management Techniques Apply Cold,Modification of Treatment,Re-positioning, Timing of Activity with Medications M4 PT-IP Mobility and Gait Start: 10/27/20 13:21 Freq: NEEDED Status: Active Protocol: Document 10/28/20 09:04 LD (Rec: 10/28/20 13:37 LD [id number]) PT-Bed Mobility Assessment Supine to Sit Supine to Sit Minimal Assistance,1 Person Assistance,Bedrails Sit to Supine Sit to Supine Moderate Assistance,1 Person Assistance Scooting Scooting to Edge of Bed Standby Assistance Scooting Up and Down in Bed Standby Assistance PT-Transfer Assessment Sit to and From Stand Sit to and from Stand Minimal Assistance,1 Person Assistance,Use of Upper Extremities Equipment Transfer Assistive Device Gait Belt,Front Wheeled Walker Orthotic/Prosthetic Devices or Brace: No Transfers Transfer Destination Bed,Chair,Wheelchair Transfer Technique Stand Step Pivot Transfer Ability Level of Assist Moderate Assistance,1 Person Assistance,Use of Upper Extremities Comments Mobility Comments Pt sitting in chair when arrived. BP 84/56 nonsymptomatic, HR 96, O2 97%. Reviewed precautions of posterior JESSICA, recalling 2/3 w / prompt cueing of the last precaution. Reviewed post op ex in sitting. Completed sit> stand, step pivot transfer from chair to bed using 4WW Min A, w/ good brake mgmt. Pt then completed sit>supine Mod A for BLE assist into bed and instructed use of gait belt to assist with LE, cued for maintaining post hip precautions. Supine>sit SBA w/ use of bed rails, sit>stand Min A using a 4WW. Pt ambulated 45 ft using 4WW SBA w/c follow due to decreased strength and activity tolerance, requiring to be wheeled the rest of the way to the stairs (see stair comment for more details) and back to room. Pt requested to return to bed, wheelchair>bed using a 4WW Min A. Pt positioned in bed. Discussed caregiver training w/ , plans to call her to come in at 1400 today. Call light and other needs placed within reach. Gait Assessment Gait Gait Assistance Required: Contact Guard Assist,1 Person Assist Distance (Feet) 45 Able to Maintain Weight Bearing Status Yes During Gait Assistive Devices Assistive Device Gait Belt,4 Wheeled Walker Orthotic/Prosthetic Devices or Brace: No Gait Deviations General Gait Pattern Antalgic,Decreased Stride Length,Decreased Feet Clearance,Flexed Trunk,Step-to Gait Factors Limiting Gait Function Factors Limiting Gait Function Decreased Activity Tolerance, Decreased Sensation,Decreased Strength,Limited Range of Motion,Pain,Poor Balance,Poor Safety Awareness Comments Gait Comments Pt ambulated ~45 feet using 4WW Min A until felt weak. Continues to walk with trunk flexion and bears MOD weight on BUE through walker. Stair Climbing Assessment Evaluation Level of Assist On Stairs Minimal Assistance,Moderate Assistance,1 Person Assistance Devices Stair Climbing Assistive Devices Straight Cane Technique/Endurance Stair Climbing Direction Ascend and Descend Stair Climbing Technique Step to Step Number of Steps Climbed 3 Stair Climbing Set # Repetitions (reps) 1 Comments Stair Climbing Comments Pt ascended and descended 3 steps w/ use of R hand rail and SPC in LUE when ascending Min A initially to Mod A ascending third step. Pt reports 6/10 pain during stair mgmt. PT-Balance Assessment Sitting Balance and Reactions Static Sitting Balance Ability Good Dynamic Sitting Balance Ability Fair Standing Balance and Reactions Static Standing Balance Ability Poor Dynamic Standing Balance Ability Poor Device Used FWW M5 PT-IP Objective Assessments Start: 10/27/20 13:21 Freq: NEEDED Status: Active Protocol: Document 10/27/20 14:43 AW (Rec: 10/27/20 15:37 AW [id number]) Orientation Orientation/Cognition Level of Alertness Alert Orientation Name,Day of Week,Place, Situation Language Function Ability No Deficits Noted Safety Awareness Decreased Safety Awareness Memory Description No Deficits Noted Gross Range of Motion Lower Extremity ROM Assessment Left Impaired Strength Lower Extremity Strength Assessment Left Impaired Hip 3/5 Knee 3+/5 Ankle 4-/5 Comments Strength Comments RLE grossly 4-/5 Sensation Assessment Sensation Gross Sensation Right LE Impaired,Left LE Impaired Light Touch Impaired Sensation Description Numbness Comments Sensation Comments Pt reports long-standing numbness affecting bilateral feet. Muscle Tone Muscle Tone WNL Yes M6 PT-IP Treatment Start: 10/27/20 13:21 Freq: NEEDED Status: Active Protocol: Document 10/28/20 09:04 LD (Rec: 10/28/20 13:37 LD [id number]) Physical Therapy Treatment Exercises Exercises Ankle Pumps,Gluteal Sets,Quad Sets,Heel Slides Knee ROM Measurement approx 90* AAROM Education Education Provided Precautions,Weight Bearing Status,Post-Op Packet,Safety Other Treatments Other Treatment Performed provided education on post op precautions and exercises. Importance of continuing self mobility. M7 PT-IP Assessment and Plan Start: 10/27/20 13:21 Freq: NEEDED Status: Active Protocol: Document 10/28/20 09:04 LD (Rec: 10/28/20 13:37 LD [id number]) PT Summary Assessment and Plan Potential Rehabilitation Potential Good Status of Condition at Evaluation Evolving Summary Impairments Pain,ROM,Strength,Balance, Sensation,Bed Mobility, Transfers,Gait,Activity Tolerance Progress Towards Goals Progressing Toward Goals,Slow Progress due to Pain,Slow Progress due to Activity Tolerance Assessment Summary Pt requires Min-Mod A with mobility using 4WW. Discussed and agreed to have come in the afternoon for caregiver training. Continue to assess mobility for pm tx including stair mgmt and gait training. Goals Bed Mobility Goal Standby Assistance Transfer Goal Standby Assistance,Front Wheeled Walker Gait Goal Standby Assistance,Front Wheel Walker Gait Distance 100 Other Goals - up/down 5 steps using SPC and unilateral rail CGA Days to Meet Goals 5 Frequency of Treatment Frequency Of Treatment Twice a Day Treatment Plan Physical Therapy Treatment Plan Bed Mobility Training,Transfer Training,Gait Training, Therapeutic Exercise,Balance Retraining,Post Op Education, Discharge Planning,Hot or Cold Pack Other Recommendations and Next Treatment Caregiver training with Focus , review precautions/ exercises; transfers and gait training as tolerated Recommendations To Nursing Amount of Assist Needed 1 Person Assist Discharge Recommendations PT Discharge Recommendations Home with Assistance, Outpatient PT Transportation Needs at Discharge Private Vehicle,Wheelchair/ Cabulance
--- NOTE | 2020-10-28 11:07 | CM.DANOTE ---
DCP/Assessment: Reviewed chart. Patient is a 75yr old female admitted to [facility] for elective left JESSICA performed on 10-27-[address] Cabral. PCP listed is Kelli Mary. Primary payor is 1)Medicare 2)[place]. Met with patient this AM explained CM/SW role. Patient alert and oriented sitting in recliner at time of visit. Patient reports that she hopes to d/c home today. Therapy evaluation pending. Patient resides with spouse/Alhaji in [place] Patient reports that she has FWW for home use. Patient also reports that outpatient therapy scheduled at [facility] in [place] Patient believes first appointment is next Monday11-03-20. P: Home when medically stable. CM team to continue to follow if needs arise. MARNIE Platt Discharge Planning/Care Management Advanced directive, confirm from FAMILY Start: 10/27/20 12:14 Freq: Q24H Status: Active Protocol: Document 10/27/20 12:14 KLP (Rec: 10/27/20 12:15 KLP [id number]) Advance Directive, confirm on record Time 12:15 Person contacted Arlien Copy received No CM Discharge Assessment Start: 10/28/20 11:05 Freq: Status: Active Protocol: Document 10/28/20 11:05 KJS (Rec: 10/28/20 11:07 KJS [id number]) Discharge Planning Assessment Assigned Supervisor Dials MARNIE Platt Contact Information Alhaji Chau (spouse) # [phone] Advance Directives? Yes Advance Directives on File No History Provided By Patient,Medical Record Prior Living Arrangements House Household Members spouse,children Is patient alert and oriented? Yes Caregiver for Another No DME Already Rented / Owned FWW / Walker Patient/Family Preference OP PT Therapy Barriers to Discharge No Discharge Plan Home Transportation Arrangement Family to provide transport. Referrals Initiated None needed Additional Comment Therapy evaluation pending Whiteboard Updated in Patient Room with Yes name and ext. # of Supervisor Dials Review Status In Process Next Review Type Continued Stay Review Pre-Anesthesia Assessment Start: 10/19/20 14:57 Freq: Status: Complete Protocol: Document 10/19/20 14:57 ARABELLA (Rec: 10/19/20 15:44 [id number]) Pre-Anesthesia Assessment Preferred Name Ana Patient Information Reviewed Via Chart Review,Phone Assessment Assessment Completed With Patient Diagnostic Results BMP/CMP,CBC,Urinalysis,Other Comment A1c, Covid Seen Specialist in Last 12 Months Yes Specialist Seen Fisher Mussel,Oncologist Preferred Language [place] Motor Assembler Required No Height 170.18 cm Hearing Ability Normal Visual Assist Glasses Dentition Type Teeth, Natural Present,Full- Upper Barriers to Learning Visual Other Aids No Hx Anesthesia Reactions No Hx Family Anesthesia Reaction No Hx Malignant Hyperthermia No Hx Blood Transfusions No Hx Blood Transfusion Reaction No Anesthesia Review Requested No 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 No Does patient have BARRON/SOB No Hx Sleep Apnea No CPAP/BIPAP use not prescribed Currently Taking a Beta Clarence No Can You Climb a Flight of Stairs Without No: Thinks that she might be SOB able to if not hurting Hx Chest Pain No Hx SOB No Hx Syncope or Dizziness No Anti-Coagulant Therapy No Has a Fisher Mussel Yes: [facility] Cardiac Testing Yes: Nuc scan 07/05/19 @ [facility]-low risk study Hx Pacemaker/ICD No Pacemaker Rep Required? No Comment Pt states Dr. Cabral told her they've received cardiac clearance Diet Type At Home Regular dysphagia No Genitourinary Symptoms Hematuria Bladder Pattern Incontinent,Nocturia Urinary Catheter Present No Hx Urinary Self Catheterization No Comment wears a panty liner just a drip Diabetes Yes: Does not check blood sugars at home Patient No Lactating No Hx Drug Resistant Organism No Presence of External or Internal Medical Yes: Cardiac stent, plate left Devices ankle, R TKA 10/24 Have you had any close contact with No someone diagnosed with COVID-19? Are you experiencing any of these No symptoms symptoms? Evaluation/Screening for possible COVID- Yes 19 infection completed? Marital Status Lives With spouse,children Prior Living Arrangements House Number of Floors (Floors) Two Floors Number of Stairs To Enter/Railing? Has a chair lift, 5 steps into the house Support System Family,Spouse Does the Patient Have Assistance After Yes Surgery Patient Discharge Plan Description Return Home Feels Safe in Current Environment Yes Been Physically Hurt or Threatened By a No Person in Current Environment Do you have thoughts of harming yourself None or others? Are you currently considering suicide? No Do you have a plan to hurt yourself or No Plan others? Do You Have Any Spiritual Beliefs That No May Affect Your HC Choices? Do You Have Any Cultural Practices That No May Affect Your HC Choices? Who Can We Speak to About Patient's Care Friends & Family Identifying Code for Release of Patient Declined Information Health Care Proxy/Next of Kin Spouse - Alhaji Chau Health Care Proxy Emergency Contact Name Alhaji () Emergency Contact Advance Directives? Yes Advance Directives on File No Requested Patient Bring Advanced Yes Directives DOS Power of Engineer Systems No PAC Instructions Assistance for 24 hours post- op,Diabetes instructions,Do not shave/clip surgical site, Durable medical equipment, Medications to take/avoid, Nasal antibiotic,No ETOH/ petroleum product on skin DOS, NPO,Post-op transportation,Pre -op antibiotic,Pre-surgical wash,Sensory aids,Sturdy shoes /comfortable clothes,Do not bring valuables and remove jewelry
[2020-10-28 12:00] VITALS: BP 135/76; PULSE 84; RESP 18; TEMP 36.8; O2SAT 96
--- NOTE | 2020-10-28 15:08 | PT.IPTN ---
Current Diagnoses Bilateral primary osteoarthritis of hip (10/27/20) Unilateral primary osteoarthritis, left hip (10/27/20) Surgery Performed Operation Date: 10/27/20 07:45 Actual Procedures p Total Hip Arthroplasty(Left) - Sarah Cabral MD Physical Therapy Treatment Note M2 PT-IP Current Condition Start: 10/27/20 13:21 Freq: NEEDED Status: Discharge Protocol: Document 10/27/20 14:43 AW (Rec: 10/27/20 15:37 AW [id number]) Physical Therapy Current Condition Current Condition Evaluation Date 10/27/20 Treatment Diagnosis L JESSICA; difficulty in walking; impaired mobility Onset Date 10/27/20 Precautions Posterior Hip Precautions No Hip Flexion > 90 degrees,No Hip Internal Rotation,No Hip Adduction Other Precautions TESFAYE and hemovac drains in place Weight Bearing Status Weight Bearing Status Weight Bear as Tolerated M3 PT-IP Subjective Start: 10/27/20 13:21 Freq: NEEDED Status: Discharge Protocol: Document 10/28/20 14:23 LD (Rec: 10/28/20 16:19 LD [id number]) Subjective Physical Therapy Visit Type Type Treatment Note Visit Start Time 14:23 Visit Stop Time 15:08 Total Visit Minutes 45 Notes SPTA co-led tx w/ [employer] Rachana. completed caregiver training and provided physical support throughout tx when needed. Number of [employer] Visits 2 Physical Therapy Visit Comments Patient Comments Pt is willing to participate with PT Patient Goals Return home to recover and attend outpatient PT Therapy Pain Assessment Pain When Pain Assessed During Weight Bearing Pain Present Pain Present Pain Reported Location Left Hip Intensity 5 Scale Used Numeric (0 - 10) Description Aching,Sharp,With Movement Pain Management Techniques Apply Cold,Modification of Treatment,Re-positioning, Timing of Activity with Medications M4 PT-IP Mobility and Gait Start: 10/27/20 13:21 Freq: NEEDED Status: Discharge Protocol: Document 10/28/20 14:23 LD (Rec: 10/28/20 16:19 LD [id number]) PT-Bed Mobility Assessment Supine to Sit Supine to Sit Contact Guard Assistance,1 Person Assistance,Bedrails Sit to Supine Sit to Supine Moderate Assistance,1 Person Assistance Scooting Scooting to Edge of Bed Standby Assistance Scooting Up and Down in Bed Standby Assistance PT-Transfer Assessment Sit to and From Stand Sit to and from Stand Minimal Assistance,1 Person Assistance,Use of Upper Extremities Equipment Transfer Assistive Device Gait Belt,Front Wheeled Walker Orthotic/Prosthetic Devices or Brace: No Transfers Transfer Destination Bed,Chair,Wheelchair Transfer Technique Stand Step Pivot Transfer Ability Level of Assist Minimal Assistance,1 Person Assistance,Use of Upper Extremities Comments Mobility Comments Pt was lying in bed w/ pillow between her legs and present in room when arrived. Provided caregiver training. Pt completed supine>sit CGA and requested to go to the bathroom. Pt sit>stand Min A using a 4WW CGA and ambulated to bathroom stand pivot transfer FWW CGA-Min A w/ use of grab bar stand>sit, self hygiene in sitting, sit>stand w/grab bar Mod-Max A. Ambulated to sink CGA, washed hands w/ forearm weight bearingfor support on sink. Pt ambulated back to chair for seated rest. Ambulated further distance into hallway with a w/c follow [address] Wheeled rest of the way to stairs. Provided education on taking breaks. Pt ambulated an additional 30 ft after stair mgmt and was wheeled back to her room. Pt step pivot transfer to bed w/ min LE assist support into bed. Able to center herself via bridging and use of bed rails. provided pillow for maintain hip precautions for LE. Call light and other needs placed within reach. Gait Assessment Gait Gait Assistance Required: Contact Guard Assist,1 Person Assist Distance (Feet) 80 Able to Maintain Weight Bearing Status Yes During Gait Assistive Devices Assistive Device Gait Belt,4 Wheeled Walker Orthotic/Prosthetic Devices or Brace: No Gait Deviations General Gait Pattern Antalgic,Decreased Stride Length,Decreased Feet Clearance,Flexed Trunk,Step-to Gait Factors Limiting Gait Function Factors Limiting Gait Function Decreased Activity Tolerance, Decreased Sensation,Decreased Strength,Limited Range of Motion,Pain,Poor Balance,Poor Safety Awareness Comments Gait Comments Pt ambulated ~90 feet using 4WW Min A until felt weak. Continues to walk with trunk flexion and bears Mod weight on BUE through walker w/ good brake mgmt when feeling more exhausted. Stair Climbing Assessment Evaluation Level of Assist On Stairs Minimal Assistance,Moderate Assistance,1 Person Assistance Devices Stair Climbing Assistive Devices Straight Cane Technique/Endurance Stair Climbing Direction Ascend and Descend Stair Climbing Technique Step to Step Number of Steps Climbed 3 Stair Climbing Set # Repetitions (reps) 1 Comments Stair Climbing Comments Pt ascended and descended 3 steps w/ use of R hand rail and SPC LUE Min A. Provided education on use of chair for rest break when needed at home for energy conservation. PT-Balance Assessment Sitting Balance and Reactions Static Sitting Balance Ability Good Dynamic Sitting Balance Ability Fair Standing Balance and Reactions Static Standing Balance Ability Poor Dynamic Standing Balance Ability Poor Device Used FWW M5 PT-IP Objective Assessments Start: 10/27/20 13:21 Freq: NEEDED Status: Discharge Protocol: Document 10/27/20 14:43 AW (Rec: 10/27/20 15:37 AW [id number]) Orientation Orientation/Cognition Level of Alertness Alert Orientation Name,Day of Week,Place, Situation Language Function Ability No Deficits Noted Safety Awareness Decreased Safety Awareness Memory Description No Deficits Noted Gross Range of Motion Lower Extremity ROM Assessment Left Impaired Strength Lower Extremity Strength Assessment Left Impaired Hip 3/5 Knee 3+/5 Ankle 4-/5 Comments Strength Comments RLE grossly 4-/5 Sensation Assessment Sensation Gross Sensation Right LE Impaired,Left LE Impaired Light Touch Impaired Sensation Description Numbness Comments Sensation Comments Pt reports long-standing numbness affecting bilateral feet. Muscle Tone Muscle Tone WNL Yes M6 PT-IP Treatment Start: 10/27/20 13:21 Freq: NEEDED Status: Discharge Protocol: Document 10/28/20 14:23 LD (Rec: 10/28/20 16:19 LD [id number]) Physical Therapy Treatment Education Education Provided Precautions,Weight Bearing Status,Safety Other Treatments Other Treatment Performed Provided education on safety and importance of self mobility. M7 PT-IP Assessment and Plan Start: 10/27/20 13:21 Freq: NEEDED Status: Discharge Protocol: Document 10/28/20 14:23 LD (Rec: 10/28/20 16:19 LD [id number]) PT Summary Assessment and Plan Potential Rehabilitation Potential Good Status of Condition at Evaluation Evolving Summary Impairments Pain,ROM,Strength,Balance, Sensation,Bed Mobility, Transfers,Gait,Activity Tolerance Progress Towards Goals Progressing Toward Goals,Slow Progress due to Pain,Slow Progress due to Activity Tolerance Assessment Summary Pt requires Min-Mod A with mobility using 4WW. will be able to assist pt at home. Recommending HHPT to improve strength and mobility within home prior to outpatient, secondary to rest breaks required to perform stair mgmt and distance in gait. Goals Bed Mobility Goal Standby Assistance Transfer Goal Standby Assistance,Front Wheeled Walker Gait Goal Standby Assistance,Front Wheel Walker Gait Distance 100 Other Goals - up/down 5 steps using SPC and unilateral rail CGA Days to Meet Goals 5 Frequency of Treatment Frequency Of Treatment Twice a Day Treatment Plan Physical Therapy Treatment Plan Bed Mobility Training,Transfer Training,Gait Training, Therapeutic Exercise,Balance Retraining,Post Op Education, Discharge Planning,Hot or Cold Pack Other Recommendations and Next Treatment Caregiver training with Focus , review precautions/ exercises; transfers and gait training as tolerated Recommendations To Nursing Amount of Assist Needed 1 Person Assist Discharge Recommendations PT Discharge Recommendations Home with Assistance,Home Health Transportation Needs at Discharge Private Vehicle,Wheelchair/ Cabulance
--- NOTE | 2020-10-28 15:31 | PC.NURSE ---
P.T. in around 2pm to meet with patient and her for caregiver training. P.T. cleared to go home with her azam, though recommending home health. Patient back in bed resting at this time. Dressing remains intact. Report given to evening shift to assume care and discharge when arrangements finalized. Call light within reach.
[2020-10-28 15:58] VITALS: BP 99/66; PULSE 106; RESP 17; TEMP 36.7; O2SAT 95
--- NOTE | 2020-10-28 16:06 | CM.DPC ---
DCP/continued: Received verbal referral from therapy requesting patient go home with HH. Asked MJ/Lydia to call orthopedic provider for approval. Order obtained for PT/OT/RN for home. Met with patient and spouse at bedside, both aware and agreeable. No agency preference therefore, [facility] contacted. Referral accepted by [facility] and information including order and F2F faxed to [facility]. Patient will be provide with [facility] brochure with d/c instructions. P: Home today with [facility] for RN/PT/OT. MARNIE Platt
== END 2020-10-28 16:09 | disposition home or self-care (01) ==
LOC: OR 06:00 → AC 06:01
PROVIDERS: PCP Nurse Practitioner Family; Referring Provider Nurse Practitioner Family; Visit Provider Orthopaedic Surgery
PROC: 0SRB0JZ Replacement of Left Hip Joint with Synthetic Substitute, Open Approach (ICD-10-PCS; CPT 27130; principal; 2020-10-27 07:45)
DX: M16.12 Unilateral primary osteoarthritis, left hip (principal); I10 Essential (primary) hypertension; E66.9 Obesity, unspecified; E78.5 Hyperlipidemia, unspecified; E11.40 Type 2 diabetes mellitus with diabetic neuropathy, unspecified; I25.10 Atherosclerotic heart disease of native coronary artery without angina pectoris; Z79.84 Long term (current) use of oral hypoglycemic drugs
CPT/HCPCS: 27130; 72170; 73502; 82962; 85014; 85018; 94762; 97110; 97116; 97161; 97530; C1776; A9270; C9290; J0171; J0690; J2250; J2274; J2405; J2704; J3010

== ENCOUNTER → 2022-09-26 10:52 | Outpatient (CLI) | payer MEDICARE, OTHER, SELFPAY ==
[2020-10-27 12:08] VITALS: BMI 28.8
[2022-09-26 11:41] LABS: COVID19 -Nasal RAPID Negative (Negative)
== END ==
PROVIDERS: PCP Nurse Practitioner; Referring Provider Orthopaedic Surgery; Visit Provider Orthopaedic Surgery
DX: Z20.822 Contact with and (suspected) exposure to COVID-19 (principal)
CPT/HCPCS: 87635; C9803

== ENCOUNTER 2022-09-28 10:30 | Observation (INO) | payer MEDICARE, OTHER, SELFPAY ==
[2020-10-27 12:08] VITALS: BMI 28.8
[2022-09-26 07:18] VITALS: BMI 28.8
[2022-09-27] VITALS (10 sets, daily range): BP systolic 96–131; BP diastolic 51–73; PULSE 56–74; RESP 12–18; TEMP 35.6–36.4; O2SAT 95–100; BMI 29.0
--- NOTE | 2022-09-27 | DI.RAD.S_ITS ---
PROCEDURE: XR HIP W PEL IF DONE RT 2V INDICATIONS: POST OP TECHNIQUE: AP pelvis and lateral view of the right hip acquired. COMPARISON: [facility], [place], XR HIP W PEL IF DONE RT 2V, 10/27/2020, 15:43. FINDINGS: Bones: Patient is status post right hip arthroplasty, with hardware components in expected positions. Postsurgical changes compatible with left hip arthroplasty also noted which are stable compared to the prior exam. The hip joint appears congruent. The visualized bony structures appear intact. Soft tissues: Overlying postoperative changes are noted. No suspicious soft tissue densities. IMPRESSION: Expected postsurgical change for right hip arthroplasty. Dictated by: Cyndy Mcguire MD, PhD on 09/27/2022 at 14:24 Approved by: Cyndy Mcguire MD, PhD on 09/27/2022 at 14:24
--- NOTE | 2022-09-27 06:00 | DI.RAD.S_ITS ---
PROCEDURE: XR PELVIS 1-2V INDICATIONS: JESSICA INNEROP TECHNIQUE: Intra-operative view of the pelvis and hip acquired. COMPARISON: [facility], [place], XR PELVIS WITH BILATERAL LATERAL HIPS, 06/22/2022, 8:06. FINDINGS: Temporary right hip arthroplasty is in the expected position. Prior left hip arthroplasty. IMPRESSION: Intraoperative guidance provided. Dictated by: Michael Self M.D. on 09/27/2022 at 12:59 Approved by: Michael Self M.D. on 09/27/2022 at 13:00
[2022-09-27 09:48] LABS: Hematocrit 36.3 % (36-46); Hemoglobin 12.1 g/dL (12.0-16.0); Mean Corpuscular HGB Conc 33.4 % (30-36); Mean Corpuscular Hemoglobin 27.7 PG (26-34); Platelet Count 359 X10^3/uL (150-400); Red Blood Cell Count 4.37 X10^6/uL (4.0-5.2); Red Cell Distribution Width 13.7 % (11.6-14.8)
[2022-09-27] MEDS: VANCOMYCIN 1,000 MG/200 ML PIGGYBACK 200 MG IV (10:04)
[2022-09-27] MEDS: CELECOXIB 200 MG CAPSULE PO (10:05)
[2022-09-27] MEDS: ACETAMINOPHEN 325 MG TABLET 975 MG PO (10:05)
[2022-09-27] MEDS: LACTATED RINGERS 1,000 ML 42 ML IV (10:11)
--- NOTE | 2022-09-27 10:49 | PM.PREOP ---
Pre-operative Note COVID-19 COVID-19 status: Negative Interval Note History & Physical reviewed/Exam performed by Physician: Yes Changes to H&P: No
--- NOTE | 2022-09-27 11:09 | PM.OP.1 ---
Operative Date/Time/Diagnoses Date of procedure: 09/27/22 Time of procedure: 11:20 Pre-op diagnosis: right hip OA Post-op diagnosis: same Procedure & Clinicians Procedure: Right total hip arthroplasty posterior approach Same procedure as scheduled: Yes Indications: The patient has had progressively worsening right hip pain with radiographic changes consistent with arthritis. Non-operative management has failed and the patient has requested total hip replacement. The risks, benefits and alternatives to surgery were discussed with the patient prior to proceeding. Risks discussed included, but were not limited to, failure to relieve pain, leg length discrepancy, dislocation, stiffness, infection, nerve damage, deep venous thrombosis, pulmonary embolism, stroke, coma, heart attack, permanent paralysis and , as well as the potential need for eventual revision of the prosthetic. Surgeon: Sarah Cabral Orthopedic Brace Maker: Lety Greene Anesthesia Type: General and Spinal Operative Notes Findings: Severe right hip osteoarthritis, adequate stability, soft bone Closure Type: primary Specimen(s): none sent Prosthetic devices, grafts, tissues, transplants, or devices: Cabral and nephew Synergy size 15, 52 R3 cup, neutral poly liner, one 6.5 mm screw, 36 mm head Applied: drain(s) Estimated Blood Loss (mL): 250 Blood products transfused: none Procedure in detail: The patient was seen in the pre-operative area, where the patient identified the right hip as the operative site and this was marked with my initials. The patient received pre-operative antibiotics and was taken to the operating room and placed on the operative table in the left lateral decubitus position after satisfactory anesthesia. A full time staff interpreter out was performed. The right leg was prepared from the ankle to the iliac crest with ChloroPrep in the usual fashion and draped through sterile drapes. The hip was approached through an approximately 20 cm incision centered over the greater trochanter and curving gently posteriorly as it went proximally. This was carried sharply to the fascia owen, which was divided and retracted with a self retaining retractor. The trochanteric bursa was excised with care being taken to avoid the sciatic nerve, which was identified and protected throughout the case. The short external rotators were incised and the capsulomuscular flap was raised and tagged for later repair. The hip was dislocated, and a femoral neck osteotomy performed approximately 15 mm above the lesser trochanter. Retractors were placed around the femur. The canal was opened with a box cutting osteotome, followed by a T handled reamer and a lateralizing reamer. The canal was sequentially reamed, followed by sequential broaching until there was good stability of the broach in the femur. Retractors were placed to expose the acetabulum. The labrum and central soft tissues were removed. Reaming was performed initially going up in 2 mm increments, then 1 mm increments until good bite was obtained with an odd sized reamer. The cup 1 mm larger than the last reamer was then inserted using the appropriate anteversion guides. A trial neutral liner was placed. The broach was placed in the canal. A trial head and neck were then placed and the hip relocated and checked for leg length and stability. An intraoperative film confirmed the component position and no evidence of fracture. The patient was stable in the position of sleep, of squatting, and could be put through a range of motion with 45 degrees internal rotation without dislocation. At 90 degrees flexion, internal rotation to 70? was possible before dislocation. This was felt to be satisfactory and the appropriate components were opened, and the trials were removed. The cup was further stabilized with a single screw. The acetabular liner was impacted into position. The final stem was then impacted into the prepared femoral canal. A brief Betadine soak was performed while trialing with head options. The hip was meticulously irrigated with normal saline. Finally the femoral head was impacted onto the stem. The acetabulum was cleared of all material and the hip relocated one final time. The capsulomuscular flap was then repaired to the greater trochanter though an awl hole using the tag sutures. The short external rotators were repaired with a nonabsorbable suture. A deep drain was placed and brought out anteriorly. The fascia owen was closed with Vicryl. The subcutaneous layer was closed with barbed sutures and SteriStrips. An Aquacel Ag dressing was applied and the patient was taken to recovery having tolerated the procedure well. Complications: none Post-operative Condition: stable Disposition: Acute Care Plan for aftercare: The patient will be maintained on a standard total hip replacement protocol with weight bearing as tolerated and posterior hip precautions. The patient will receive Aspirin and sequential compression devices for DVT prophylaxis. The patient will be discharged home when safe for the home environment.
[2022-09-27] MEDS: CEFAZOLIN 2 GM/100 ML PREMIX 100 ML IV ×2 (11:12→18:16)
[2022-09-27] MEDS: TRANEXAMIC ACID 1,000 MG VIAL 2000 MG INJ ×2 (11:15→12:56)
[2022-09-27] MEDS: BUPIVACAINE LIPOSOME 266 MG/20 ML VIAL INJ (11:51)
[2022-09-27] MEDS: BUPIVACAINE 0.25% (PF) 60 ML, EPINEPHrine 0.3 MG INJ (11:52)
--- NOTE | 2022-09-27 13:55 | SUR.PHASEI ---
transfer to 223, tolerated, all belongings with patient. denies pain
--- NOTE | 2022-09-27 14:30 | PC.NURSE ---
Patient brought up from PACU to room 223. Oriented to room and call light. Awake and appropriate but sleepy. VSS. Denies pain, unable to move her legs or wiggle her toes at this time, legs warm with palpable pulses. Aquacel dressing to right hip intact. Call light within reach, bed alarm on for safety. Will continue to monitor.
[2022-09-27] MEDS: LACTATED RINGERS 1,000 ML 125 ML IV ×2 (15:32→23:47)
[2022-09-27] MEDS: ACETAMINOPHEN 325 MG TABLET 650 MG PO (18:15)
[2022-09-27] MEDS: IBUPROFEN 400 MG TABLET PO (18:15)
[2022-09-27] MEDS: lisinopriL 20 MG TABLET 40 MG PO (21:21)
[2022-09-27] MEDS: ATORVASTATIN 20 MG TABLET 80 MG PO (21:22)
[2022-09-27] MEDS: METFORMIN HCL 500 MG TABLET 1500 MG PO (21:22)
[2022-09-27] MEDS: TRIAMTERENE/HCTZ 37.5/25 CAPSULE 1 CAP PO (21:22)
[2022-09-27] MEDS: DOCUSATE 100 MG CAPSULE PO (21:22)
[2022-09-27] MEDS: ASPIRIN EC 81 MG TABLET PO (21:24)
[2022-09-28 00:16] VITALS: BP 111/59; PULSE 75; RESP 18; TEMP 36.3; O2SAT 97
[2022-09-28] MEDS: ACETAMINOPHEN 325 MG TABLET 650 MG PO ×3 (00:50→12:37)
[2022-09-28] MEDS: IBUPROFEN 400 MG TABLET PO (00:50)
--- NOTE | 2022-09-28 01:17 | PC.NURSE ---
Patient medicated for pain, and unable to void while on bedpan. Patient with iv fluids at 125/hr bladder scanned with results of 5-10cc. rescanned with results of 230-250. results. only has voided 200 since surgery in afternoon. straight cath done with result of 250cc of dark abbi urine removed.
[2022-09-28] MEDS: CEFAZOLIN 2 GM/100 ML PREMIX 100 ML IV (03:03)
[2022-09-28 04:00] VITALS: BP 116/61; PULSE 93; RESP 17; TEMP 36.1; O2SAT 97
[2022-09-28 05:27] LABS: Hematocrit 28.1 % (36-46); Hemoglobin 9.3 g/dL (12.0-16.0)
--- NOTE | 2022-09-28 07:34 | PM.DS.1 ---
History of Present Illness History of Present Illness Date Patient Seen: 09/28/22 Time Patient Seen: 07:35 Chief complaint: right carolyn posterior Narrative: The patient is complaining of mild right hip pain. Her main complaint is difficulty sleeping and some generalized abdominal pain. No nausea or vomiting, no new numbness or tingling. Overall, she is feeling well and would like to be discharged home. Discharge Providers Provider Discharge Date: 09/28/22 Primary care physician: KETTY Ochoa Consults: 09/27/22 06:00 Consult to Anesthesiology Routine Comment: Consulting Provider: Anesthesiologist Reason for consultation: Regional block for post operative pain control 09/27/22 13:42 Consult to Discharge Planning Routine Comment: Consult to Physical Therapy Evaluate & Treat Comment: Physician Instructions: post op CAROLYN protocol Discharge provider: Rubina Laughlin PA-C Summary Hospital Course Discharge Diagnosis: Right hip oseteoarthritis -postop hemorrhagic anemia, asymptomatic Hospital Course: Operative Date/Time/Diagnoses Date of procedure: 09/27/22 Time of procedure: 11:20 Procedure & Clinicians Procedure: Right total hip arthroplasty posterior approach Same procedure as scheduled: Yes Indications: The patient has had progressively worsening right hip pain with radiographic changes consistent with arthritis. Non-operative management has failed and the patient has requested total hip replacement. The risks, benefits and alternatives to surgery were discussed with the patient prior to proceeding. Risks discussed included, but were not limited to, failure to relieve pain, leg length discrepancy, dislocation, stiffness, infection, nerve damage, deep venous thrombosis, pulmonary embolism, stroke, coma, heart attack, permanent paralysis and , as well as the potential need for eventual revision of the prosthetic. Surgeon: Sarah Cabral Semi Automatic Sewing Machine Operator: Lety Greene Anesthesia Type: General and Spinal Operative Notes Findings: Severe right hip osteoarthritis, adequate stability, soft bone Closure Type: primary Specimen(s): none sent Prosthetic devices, grafts, tissues, transplants, or devices: Cabral and nephew Synergy size 15, 52 R3 cup, neutral poly liner, one 6.5 mm screw, 36 mm head Applied: drain(s) Estimated Blood Loss (mL): 250 Blood products transfused: none Status at Discharge Cognitive/behavioral status at discharge: at baseline, oriented Functional status at discharge: uses cane/walker Overall status at discharge: patient is progressing back to baseline Exam Vital Signs (past 8 hours): - 09/28/22 00:16 09/28/22 04:00 Temperature 97.4 F L 96.9 F L Pulse Rate 75 93 H Respiratory Rate 18 17 Blood Pressure 111/59 L 116/61 Pulse Oximetry 97 97 Oxygen Delivery Method Room Air Oxygen Flow Rate 0 Narrative Exam Narrative: 77yo female, resting comfortably in bed, no acute distress. The right hip dressing is clean, dry, intact. Motor functions are grossly intact in bilateral lower extremities. Sensation is grossly intact to light touch in bilateral lower extremities. Both legs are warm and dry. SCDs are on and functioning. Bilateral calves are soft, nontender to palpation. 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 Weightbearing as tolerated with front wheeled walker. Maintain posterior hip precautions x6 weeks -continue with multimodal pain mangagement. Added Tramadol prn moderate pain -aspirin 81mg bid x6wks for dvt prophylaxis -d/c home when cleared by PT Discharge Plan Discharge Plan Patient Disposition: Home Discharge orders & Medications Discharge Orders: Discharge (Order); Ordered 09/28/22 Ordered By: Rubina Laughlin Prescriptions: New acetaminophen 500 mg capsule 500 mg PO Q4H MDD max 3000mg/day PRN (Reason: fever or pain) Qty: 90 0RF aspirin 81 mg Tablet,Delayed Release (Dr/Ec) 81 mg PO BID 42 Days Qty: 84 0RF Rx Instructions: prevent blood clots docusate sodium 100 mg Capsule 100 mg PO BID PRN (Reason: constipation) Qty: 20 0RF ibuprofen 400 mg Tablet 400 mg PO Q4-6H MDD max 2,400mg/day PRN (Reason: pain/inflammation) Qty: 90 0RF tramadol 50 mg Tablet 50 mg PO QID PRN (Reason: Pain, Moderate (4-6)) Qty: 20 0RF Continued vitamin B complex Capsule 1 cap PO DAILY omega-3 fatty acids-vitamin E 1,000 mg Capsule 2 cap PO DAILY calcium phos,dibas-vitamin D3 77-400 mg-unit Tablet 1 tab PO DAILY metformin 500 mg Tablet 1,500 mg PO BEDTIME atorvastatin 80 mg Tablet 80 mg PO BEDTIME triamterene-hydrochlorothiazid 75-50 mg Tablet 1 tab PO BEDTIME lisinopril 40 mg Tablet 40 mg PO BEDTIME alendronate 70 mg Tablet 70 mg PO QWEEK Label Comments: Takes on Mondays ibuprofen 400 mg tablet 400 mg PO Q4HR PRN (Reason: Pain) Discontinued acetaminophen 325 mg tablet 500 mg PO DAILY PRN (Reason: Pain) aspirin 81 mg tablet,delayed release (DR/EC) 81 mg PO DAILY Follow up/Referrals: Nita Schmitz ARNP [Primary Care Provider] - Sarah Cabral MD [Physician] - As previously scheduled (10-14 days for a postop visit) Diet/Activity/Treatments Diet: Carb-consistent/Diabetic Other treatments: Medications: -Aspirin 81mg twice daily x6 weeks to prevent blood clots. -OTC Tylenol 500 mg 1 tablet every 4 hours as needed for pain/fever. Max 6 tablets per day. -Ibuprofen 400 mg 1 tablet every 4 hours as needed for pain/inflammation. Max 2,400 mg per day. -Tramadol 50 mg take 1-2 tablets every 4 hours as needed for moderate-severe pain (narcotic pain medication). -As needed medications: -Ducolax and /or MiraLax as needed for constipation from narcotic pain medications. -Pepcid AC as needed for stomach upset (usually from aspirin or ibuprofen). Dressing/Wound care: -Keep Aquacell dressing in place until postoperative follow-up office visit. -Okay to shower. Keep wound out of direct water stream. No soaking or submerging until all the scabs fall off (approximately 6 weeks). -No lotions, ointments, or scar creams directly to the incision until the wound is healed (4-6 weeks), -Please call the office if dressing becomes wet, soiled, or saturated. Activities: -Maintain posterior hip precautions x6 weeks. -Weight-bearing as tolerated. Use front wheeled walker, and progress to cane when safe. -Continue with home exercises as directed by your physical therapist. -Elevate ?toes above the nose if you have significant swelling in your lower leg. (A wedge pillow is easiest.) -Ice your incision as needed for pain/inflammation/swelling. Protect your skin with a folded pillowcase. Follow-up: -Follow-up with your surgeon or PA in the office in 10-14 days after surgery. -Follow-up with your surgeon 6 weeks postoperatively. Call the office if you have chest pain, shortness of breath, significant swelling that will not resolve with elevating, fever over 101?, significantly worsening pain, or are concerned you might need to go to the Emergency Room. [facility]: [phone] Skin/Wound/Dressing Care Report to your healthcare provider any signs of infection, such as:: chills, fever, night sweats, unusual drainage and unusual redness Visit Report/Discharge Packet Instructions: DI for Hip Replacement Stand Alone Forms: Patient Portal/API, Stroke Signs & Symptoms, Surgery Discharge Discharge Data Primary Care Provider: Nita Schmitz Attending Provider: Sarah Cabral
[2022-09-28 07:45] VITALS: BP 122/65; PULSE 82; RESP 16; TEMP 36.2; O2SAT 97
[2022-09-28] MEDS: TRAMADOL 50 MG TABLET PO (08:06)
[2022-09-28] MEDS: DOCUSATE 100 MG CAPSULE PO (08:06)
[2022-09-28] MEDS: ASPIRIN EC 81 MG TABLET PO (08:06)
--- NOTE | 2022-09-28 10:10 | PT.IIE ---
Current Diagnoses Bilateral primary osteoarthritis of hip (09/28/22) Unilateral primary osteoarthritis, right hip (09/28/22) Surgery Performed Operation Date: 09/27/22 11:15 Actual Procedures p Total Hip Arthroplasty Posterior(Right) - Sarah Cabral MD Surgical History (Last Reviewed 09/28/22 @ 07:37 by Rubina Laughlin PA-C) History of ankle surgery History of bladder surgery History of hysterectomy 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) Hx of appendectomy Hx of heart artery stent (05/31/18) Hx of tonsillectomy Medical History (Last Reviewed 09/28/22 @ 07:37 by Rubina Laughlin PA-C) CAD (coronary artery disease) Cyst Diabetes History of uterine prolapse HLD (hyperlipidemia) HTN (hypertension) Neuropathy Osteoarthritis Skin burn Unilateral primary osteoarthritis, left hip Physical Therapy Inpatient Evaluation/Re-Eval M1 PT/OT-IP Prior Functional Status Start: 09/28/22 12:34 Freq: NEEDED Status: Active Protocol: Document 09/28/22 10:10 AB (Rec: 09/28/22 12:51 AB [id number]) Medical Review Prior Functional Status Medical History Reviewed Yes Communication able to make needs known Mobility and Gait pt stated that she is modified independent with all mobilities and ambulation using a 4WW but can only ambulate short distance and needs to sit down on 4WW for rest breaks especially when going outside the house Social History Household Members spouse Living Arrangements House Number of Floors (Floors) Two Floors Number of Stairs To Enter/Railing? pt lives in a split level house: has 5 steps B rails to enter but pt stated that she usually uses the R rail and SPC; once inside and on the landing, she has a lift chair to get to the bedroom/living area Home Environment Standard Height Toilet,Tub/ Shower Home Equipment Front Wheel Walker,Four Wheel Walker,Raised Toilet Seat Without Armrests,Tub Transfer Bench,Hand Held Shower M2 PT-IP Current Condition Start: 09/28/22 12:34 Freq: NEEDED Status: Active Protocol: Document 09/28/22 10:10 AB (Rec: 09/28/22 12:51 AB [id number]) Physical Therapy Current Condition Current Condition Evaluation Date 09/28/22 Treatment Diagnosis s/p R JESSICA posterior approach; difficulty in walking Onset Date 09/27/22 M3 PT-IP Subjective Start: 09/28/22 12:34 Freq: NEEDED Status: Active Protocol: Document 09/28/22 10:10 AB (Rec: 09/28/22 12:51 AB [id number]) Subjective Physical Therapy Visit Type Type Initial Evaluation Visit Start Time 10:10 Visit Stop Time 11:00 Total Visit Minutes 50 Number of REGISTERED NURSE FLOAT POOL Visits 0 Physical Therapy Visit Comments Patient Comments agreeable to do PT Therapy Pain Assessment Pain When Pain Assessed At Rest Pain Present Pain Present Pain Reported Location Right Hip Intensity 1 Scale Used Numeric (0 - 10) Pain Management Techniques Distraction,Modification of Treatment,Re-positioning, Timing of Activity with Medications M4 PT-IP Mobility and Gait Start: 09/28/22 12:34 Freq: NEEDED Status: Active Protocol: Document 09/28/22 10:10 AB (Rec: 09/28/22 12:51 AB [id number]) PT-Bed Mobility Assessment Supine to Sit Supine to Sit Maximum Assistance Sit to Supine Sit to Supine Maximum Assistance PT-Transfer Assessment Sit to and From Stand Sit to and from Stand Maximum Assistance,1 Person Assistance,Use of Upper Extremities Equipment Transfer Assistive Device Gait Belt,Front Wheeled Walker Orthotic/Prosthetic Devices or Brace: No Transfers Transfer Destination Bed,Chair,Toilet Transfer Technique ambulated Transfer Ability Level of Assist Maximum Assistance,1 Person Assistance,Use of Upper Extremities Comments Mobility Comments pt sitting on chair. educated on posterior hip precautions and pt requires cues to recall . completed sit to stand max A and max cues for hip precautions and ambulated in room using FWW mod A and pt requested to use the toilet. ambulated towards the toilet using FWW mod A and required max A for constrolled descent to the toilet, mod to max a for standing balance using FWW while assisted with brief management. max A for sit to stand from the toilet using grab bar and pt ambulated towards the bed using FWW ~ 15 ft mod A and max cues. completed bed mobility sit <> supine max A and max cues. completed sit to stand from EOB max A and max cues. repeated x 2 reps. step transfer to chair using FWW mod to max A. positioned pt on the chair. call light and table placed within reach. informed pt regarding current mobility level and assistance needed and caregiver training should be conducted and pt agreed. pt will call her spouse to come in at 130 pm today for caregiver training. informed nurse. Gait Assessment Gait Gait Assistance Required: Moderate Assistance Distance (Feet) 20 Able to Maintain Weight Bearing Status Yes During Gait Assistive Devices Assistive Device Gait Belt,Front Wheeled Walker Orthotic/Prosthetic Devices or Brace: No Gait Deviations General Gait Pattern Antalgic,Decreased Stride Length,Decreased Feet Clearance,Step-to Gait Factors Limiting Gait Function Factors Limiting Gait Function Decreased Activity Tolerance, Decreased Strength,Difficulty Following Directions,Limited Range of Motion,Pain,Poor Balance,Poor Safety Awareness PT-Balance Assessment Sitting Balance and Reactions Static Sitting Balance Ability Good Dynamic Sitting Balance Ability Fair Standing Balance and Reactions Static Standing Balance Ability Poor Dynamic Standing Balance Ability Poor Device Used FWW M5 PT-IP Objective Assessments Start: 09/28/22 12:34 Freq: NEEDED Status: Active Protocol: Document 09/28/22 10:10 AB (Rec: 09/28/22 12:51 AB [id number]) Orientation Orientation/Cognition Level of Alertness Alert Orientation Name,Age,Place,Situation Language Function Ability No Deficits Noted Safety Awareness Decreased Safety Awareness Memory Description Short Term Impaired Gross Range of Motion Lower Extremity ROM Assessment Within Functional Limits Strength Lower Extremity Strength Assessment Bilaterally Impaired Hip 3+/5 Knee R: 4-/5 L: 3+/5 Sensation Assessment Sensation Gross Sensation WNL Muscle Tone Muscle Tone WNL Yes M6 PT-IP Treatment Start: 09/28/22 12:34 Freq: NEEDED Status: Active Protocol: Document 09/28/22 10:10 AB (Rec: 09/28/22 12:51 AB [email or web address]) Physical Therapy Treatment Education Education Provided Precautions,Weight Bearing Status,Post-Op Packet,Safety M7 PT-IP Assessment and Plan Start: 09/28/22 12:34 Freq: NEEDED Status: Active Protocol: Document 09/28/22 10:10 AB (Rec: 09/28/22 12:51 AB [email or web address]) PT Summary Assessment and Plan Potential Rehabilitation Potential Fair Status of Condition at Evaluation Evolving Summary Impairments Pain,ROM,Strength,Balance, Coordination,Sensation,Tone, Cognition,Bed Mobility, Transfers,Gait,Activity Tolerance Assessment Summary pt requiring mod to max A with mobility using FWW and max cues for hip precautions and safety. caregiver training set up this afternoon at 130 pm. will continue to assess progress for safe d/c plan. Goals Bed Mobility Goal Standby Assistance Transfer Goal Standby Assistance,Front Wheeled Walker Gait Goal Standby Assistance,Front Wheel Walker Gait Distance 50 Other Goals improve bed mobility, transfers, ambulation using 4WW 100 ft SBA up/down 5 steps using R rail+ SPC SBA Days to Meet Goals 10 Frequency of Treatment Frequency Of Treatment Twice a Day Treatment Plan Physical Therapy Treatment Plan Bed Mobility Training,Transfer Training,Gait Training, Therapeutic Exercise,Balance Retraining,Post Op Education, Discharge Planning,Hot or Cold Pack,Neuromuscular Re-ed, Coordination Retraining,Manual Therapy Precautions Posterior Hip Precautions No Hip Flexion > 90 degrees,No Hip Internal Rotation,No Hip Adduction Weight Bearing Status Weight Bearing Status Weight Bear as Tolerated Allowed Weight Bearing Amount (enter % RLE WBAT or #) (%) Recommendations To Nursing Amount of Assist Needed 1 Person Assist Discharge Recommendations PT Discharge Recommendations Home with 27/03 Assist Available,Home Health,SNF Rehab,Home vs SNF Transportation Needs at Discharge Private Vehicle,Wheelchair/ Cabulance
[2022-09-28 11:47] VITALS: BP 114/70; PULSE 84; RESP 16; TEMP 36.2; O2SAT 96
[2022-09-28] MEDS: ONDANSETRON 4 MG ODT PO (12:08)
--- NOTE | 2022-09-28 12:14 | CM.DANOTE ---
Initial Discharge Assessment Note: Met with patient, introduced self and role. Patient is pleasant, Alert and oriented. Payer: Medicare and [facility] [place] PCP: Nita Schmitz 77 year old female admitted yesterday for a R JESSICA by Dr Sarah Cabral. Patient resides in [facility] with her spouse Alhaji. She previously had a Left hip surgery and states she is familiar with precautions and has appropriate DME and Chair lift for stairs but she does have 6 stairs in order to enter their house. PT Eval pending. Plan: Discharge home when medically cleared. Discharge orders for today. SEJ Discharge Planning/Care Management Advanced directive, confirm from FAMILY Start: 09/27/22 14:04 Freq: Q24H Status: Active Protocol: Document 09/27/22 14:08 AKP (Rec: 09/27/22 14:08 AKP [id number]) Advance Directive, confirm on record Time 14:08 Person contacted spouse to provide Copy received No CM Discharge Assessment Start: 09/28/22 12:12 Freq: Status: Active Protocol: Document 09/28/22 12:12 (Rec: 09/28/22 12:14 [id number]) Discharge Planning Assessment Assigned Beauty Director Betzaida Funes Advance Directives? Yes Advance Directives on File No History Provided By Patient,Medical Record Prior Living Arrangements House Household Members spouse Type of transporation used prior to Relies on Others admit Independent with ADL's Yes Is patient alert and oriented? Yes Caregiver for Another No DME Already Rented / Owned Bath Bench,FWW / Walker Patient/Family Preference OP PT Therapy Barriers to Discharge No Discharge Plan Home Transportation Arrangement Family to provide transport. Referrals Initiated None needed Additional Comment Therapy evaluation pending Review Status In Process Next Review Type Continued Stay Review Pre-Anesthesia Assessment Start: 09/23/22 08:34 Freq: Status: Active Protocol: Document 09/26/22 07:18 CAB (Rec: 09/23/22 09:27 CAB [id number]) Pre-Anesthesia Assessment Patient Information Reviewed Via Phone Assessment Assessment Completed With Patient Comment COVID screen @ 09/26/22 Primary Care Provider Nita Schmitz Seen Specialist in Last 12 Months Yes Specialist Seen Human Resources Director,Document Image Technician, Orthopedist Primary Language [place] Preferred Language [place] Senior Biostatistician Required No Height 170.18 cm Weight 83.461 kg Body Mass Index (BMI) 28.8 Hearing Ability Normal Visual Assist Glasses Dentition Type Teeth, Natural Present,Full- Upper Barriers to Learning Visual Other Aids No Hx Anesthesia Reactions No Hx Family Anesthesia Reaction No Hx Malignant Hyperthermia No Hx Blood Transfusions No Hx Blood Transfusion Reaction No Anesthesia Review Requested No Strategic Partnership Specialist No alcohol intake never Smoking Status Never smoker Substance Use Type does not use Pain Present Pain Reported Musculoskeletal Symptoms Abnormal Gait,Difficulty Walking,Joint Pain,Limited Range of Motion,Muscle Weakness,Tingling History of Falling (Recent or History of No ) Patient is completely paralyzed or No completely immobile Prosthesis or Orthotic Device Cane,Front Wheel Walker Gait/Transferring Impaired Mental Status Oriented to own ability Is patient on oxygen? No Does patient have BARRON/SOB No Hx Sleep Apnea No CPAP/BIPAP use not prescribed Currently Taking a Beta Clarence No Can You Climb a Flight of Stairs Without No SOB Hx Chest Pain No Hx SOB No Hx Syncope or Dizziness No Anti-Coagulant Therapy Yes: Aspirin-advised to continue taking per cardiology Has a Human Resources Director Yes: Last visit 08/04/[address] Farrell Cardiac Testing No: Stress Echo @ [facility] 08/31/22 -negative for ischemia Hx Pacemaker/ICD No Pacemaker Rep Required? No Cardiac Clearance Received Yes Diet Type At Home Regular Dysphagia No Gastrointestinal Symptoms Diarrhea Bladder Pattern Incontinent,Nocturia Urinary Catheter Present No Hx Urinary Self Catheterization No Diabetes Yes: Does not check blood sugars at home Patient No Lactating No Hx Drug Resistant Organism No Presence of External or Internal Medical Yes: Cardiac stent, plate left Devices ankle, Rt knee, lt hip Have you had any close contact with No someone diagnosed with COVID-19? Received a COVID vaccine? Yes Received all doses? No Marital Status Lives With spouse,children Current Living Arrangements House Number of Floors (Floors) Two Floors Support System Child/Children,Spouse Does the Patient Have Assistance After Yes Surgery Patient Discharge Plan Description Return Home Comment Pt not advised on length of stay per surgeon office Feels Safe in Current Environment Yes Been Physically Hurt or Threatened By a No Person in Current Environment Do you have thoughts of harming yourself None or others? Are you currently considering suicide? No Do you have a plan to hurt yourself or No Plan others? Do You Have Any Spiritual Beliefs That No May Affect Your HC Choices? Do You Have Any Cultural Practices That No May Affect Your HC Choices? Comment Religious Who Can We Speak to About Patient's Care Family, friends Identifying Code for Release of Patient Declines to issue Information Health Care Proxy/Next of Kin Alhaji () Health Care Proxy Emergency Contact Name Alhaji () Emergency Contact Advance Directives? Yes Advance Directives on File No Requested Patient Bring Advanced Yes Directives DOS Power of Plating Engineer No PAC Instructions Diabetes instructions,Do not shave/clip surgical site, Durable medical equipment, Medications to take/avoid, Nasal antibiotic,No ETOH/ petroleum product on skin DOS, NPO,Pre-surgical wash,Sensory aids,Sturdy shoes/comfortable clothes,Do not bring valuables and remove jewelry
--- NOTE | 2022-09-28 14:59 | PT.IPTN ---
Current Diagnoses Bilateral primary osteoarthritis of hip (09/28/22) Unilateral primary osteoarthritis, right hip (09/28/22) Surgery Performed Operation Date: 09/27/22 11:15 Actual Procedures p Total Hip Arthroplasty Posterior(Right) - Sarah Cabral MD Physical Therapy Treatment Note M2 PT-IP Current Condition Start: 09/28/22 12:34 Freq: NEEDED Status: Active Protocol: Document 09/28/22 10:10 AB (Rec: 09/28/22 12:51 AB [id number]) Physical Therapy Current Condition Current Condition Evaluation Date 09/28/22 Treatment Diagnosis s/p R JESSICA posterior approach; difficulty in walking Onset Date 09/27/22 M3 PT-IP Subjective Start: 09/28/22 12:34 Freq: NEEDED Status: Active Protocol: Document 09/28/22 14:29 LJ (Rec: 09/28/22 14:59 LJ [id number]) Subjective Physical Therapy Visit Type Type Treatment Note Visit Start Time 13:31 Visit Stop Time 14:15 Total Visit Minutes 44 Notes in room with pt ready to do CG training. Number of [facility] [employer]IST Visits 1 Physical Therapy Visit Comments Patient Comments agreeable to do PT Therapy Pain Assessment Pain When Pain Assessed At Rest Pain Present Pain Present Pain Reported Location Right Hip Scale Used unspecified Pain Management Techniques Distraction,Modification of Treatment,Re-positioning, Timing of Activity with Medications M4 PT-IP Mobility and Gait Start: 09/28/22 12:34 Freq: NEEDED Status: Active Protocol: Document 09/28/22 14:29 LJ (Rec: 09/28/22 14:59 LJ [id number]) PT-Bed Mobility Assessment Supine to Sit Supine to Sit Contact Guard Assistance,1 Person Assistance,Bedrails Sit to Supine Sit to Supine Contact Guard Assistance,1 Person Assistance Scooting Scooting to Edge of Bed Standby Assistance Scooting Up and Down in Bed Standby Assistance PT-Transfer Assessment Sit to and From Stand Sit to and from Stand Contact Guard Assistance,1 Person Assistance,Use of Upper Extremities Equipment Transfer Assistive Device Gait Belt,Front Wheeled Walker Orthotic/Prosthetic Devices or Brace: No Transfers Transfer Destination Bed Transfer Technique ambulated Transfer Ability Level of Assist Contact Guard Assistance,1 Person Assistance,Use of Upper Extremities Comments Mobility Comments Pt lying in bed willing to work with PT. CGA with supine> longsitting leaning back on UEs to avoid 90 degree hip flexion. Pt leaned slightly to left side. Able to move LEs off side of bed SBA. Shimmied hips forward. Pt stood by pushing off bed while provided assist with gait belt CGA-Maggy. Pt ambulated in hallway WC following then sat in WC to be taken to stairs to practice up/down safely. Pt completed stairs then requested to be wheeled back to room. Pt returned to bed SBA for all mobility. Pt maintained precautions with cueing assist. Gait Assessment Gait Gait Assistance Required: Contact Guard Assist,1 Person Assist Distance (Feet) 150 Able to Maintain Weight Bearing Status Yes During Gait Assistive Devices Assistive Device Gait Belt,Front Wheeled Walker Orthotic/Prosthetic Devices or Brace: No Gait Deviations General Gait Pattern Antalgic,Decreased Stride Length,Decreased Feet Clearance,Step-to Gait Factors Limiting Gait Function Factors Limiting Gait Function Decreased Activity Tolerance, Decreased Strength,Difficulty Following Directions,Limited Range of Motion,Pain,Poor Balance,Poor Safety Awareness Stair Climbing Assessment Evaluation Level of Assist On Stairs Contact Guard Assistance Devices Stair Climbing Assistive Devices Left Railing,Right Railing Technique/Endurance Stair Climbing Direction Ascend and Descend Stair Climbing Technique Step to Step Number of Steps Climbed 3 Stair Climbing Set # Repetitions (reps) 2 Comments Stair Climbing Comments Pt pulling heavily on right railing as ascending and leaning heavily on left descending. beside her ascending and behind her ascending. Pt was nervos about going down the steps but had no trouble with it. Had to be reminded which LE to use up/ down. cued pt. PT-Balance Assessment Sitting Balance and Reactions Static Sitting Balance Ability Good Dynamic Sitting Balance Ability Fair Standing Balance and Reactions Static Standing Balance Ability Poor Dynamic Standing Balance Ability Poor Device Used FWW M5 PT-IP Objective Assessments Start: 09/28/22 12:34 Freq: NEEDED Status: Active Protocol: Document 09/28/22 10:10 AB (Rec: 09/28/22 12:51 AB [id number]) Orientation Orientation/Cognition Level of Alertness Alert Orientation Name,Age,Place,Situation Language Function Ability No Deficits Noted Safety Awareness Decreased Safety Awareness Memory Description Short Term Impaired Gross Range of Motion Lower Extremity ROM Assessment Within Functional Limits Strength Lower Extremity Strength Assessment Bilaterally Impaired Hip 3+/5 Knee R: 4-/5 L: 3+/5 Sensation Assessment Sensation Gross Sensation WNL Muscle Tone Muscle Tone WNL Yes M6 PT-IP Treatment Start: 09/28/22 12:34 Freq: NEEDED Status: Active Protocol: Document 09/28/22 14:29 (Rec: 09/28/22 14:59 [id number]) Physical Therapy Treatment Education Education Provided Precautions,Weight Bearing Status,Post-Op Packet,Safety M7 PT-IP Assessment and Plan Start: 09/28/22 12:34 Freq: NEEDED Status: Active Protocol: Document 09/28/22 14:29 (Rec: 09/28/22 14:59 [id number]) PT Summary Assessment and Plan Potential Rehabilitation Potential Fair Status of Condition at Evaluation Evolving Summary Impairments Pain,ROM,Strength,Balance, Coordination,Sensation,Tone, Cognition,Bed Mobility, Transfers,Gait,Activity Tolerance Assessment Summary pt requiring SBA-CGA for bed mobility and CGA-Maggy for gait and stairs. Used FWW and gait belt. demonstrated understanding and appropriate level of assistance when would let him assist her. At times she told him to let her do it herself. Pt able to repeat and demonstrate understanding of precautions but needed to be reminded while sitting in WC to move leg laterally. Instructed to use a pillow between legs when sitting and lying down to maintain precautions. Pt has met goals for safe DC home with to assist. Goals Bed Mobility Goal Standby Assistance Transfer Goal Standby Assistance,Front Wheeled Walker Gait Goal Standby Assistance,Front Wheel Walker Gait Distance 50 Other Goals improve bed mobility, transfers, ambulation using 4WW 100 ft SBA up/down 5 steps using R rail+ SPC SBA Days to Meet Goals 10 Frequency of Treatment Frequency Of Treatment Twice a Day Treatment Plan Physical Therapy Treatment Plan Bed Mobility Training,Transfer Training,Gait Training, Therapeutic Exercise,Balance Retraining,Post Op Education, Discharge Planning,Hot or Cold Pack,Neuromuscular Re-ed, Coordination Retraining,Manual Therapy Precautions Posterior Hip Precautions No Hip Flexion > 90 degrees,No Hip Internal Rotation,No Hip Adduction Weight Bearing Status Weight Bearing Status Weight Bear as Tolerated Allowed Weight Bearing Amount (enter % RLE WBAT or #) (%) Recommendations To Nursing Amount of Assist Needed 1 Person Assist Discharge Recommendations PT Discharge Recommendations Home with 27/03 Assist Available Transportation Needs at Discharge Private Vehicle,Wheelchair/ Cabulance
== END 2022-09-28 15:17 | disposition home or self-care (01) ==
LOC: OR 12:22 → AC 12:22
PROVIDERS: Physician Assistant; Admitting Provider Orthopaedic Surgery; PCP Nurse Practitioner; Referring Provider Orthopaedic Surgery; Visit Provider Orthopaedic Surgery
PROC: 0SR90JZ Replacement of Right Hip Joint with Synthetic Substitute, Open Approach (ICD-10-PCS; CPT 27130; principal; 2022-09-27 11:15)
DX: M16.11 Unilateral primary osteoarthritis, right hip (principal); D62 Acute posthemorrhagic anemia; E11.9 Type 2 diabetes mellitus without complications; Z79.4 Long term (current) use of insulin; I10 Essential (primary) hypertension; I25.10 Atherosclerotic heart disease of native coronary artery without angina pectoris
CPT/HCPCS: 27130; 36415; 72170; 73502; 85014; 85018; 85027; 97116; 97162; 97530; C1776; G0378; C9290; J0171; J0690; J1100; J2405; J2704; J3010

== ENCOUNTER 2023-07-11 23:33 | Emergency (ER) | payer MEDICARE, OTHER, SELFPAY ==
[2022-09-27 13:56] VITALS: BMI 29.0
[2023-07-11 23:44] VITALS: BP 156/102; PULSE 106; RESP 20; TEMP 36.6; O2SAT 100
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
[2023-07-12 00:01] VITALS: BP 110/71; PULSE 87; RESP 24; O2SAT 98
[2023-07-12] MEDS: KETOROLAC 30 MG/ML VIAL IM (00:01)
[2023-07-12] MEDS: HYDROCODONE/ACET 5/325 TABLET 1 TAB PO (00:01)
== END 2023-07-12 00:29 | disposition home or self-care (01) ==
PROVIDERS: Emergency Provider Emergency Medicine; PCP Nurse Practitioner
DX: M54.42 Lumbago with sciatica, left side (principal)
CPT/HCPCS: 96372; 99283; J1885

== ENCOUNTER → 2023-07-24 11:38 | Outpatient (CLI) | payer MEDICARE, OTHER, SELFPAY ==
[2022-09-27 13:56] VITALS: BMI 29.0
--- NOTE | 2023-07-24 11:51 | DI.MRI.S_ITS ---
PROCEDURE: MR LUMBAR SPINE WO CON INDICATIONS: Radiculopathy, lumbar region TECHNIQUE: Noncontrast sagittal T1 spin echo and T2 fast echo, sagittal STIR, and T2 fast spin echo through the lumbar spine. In cases with scoliosis, additional coronal T2 fast spin echo may be performed. COMPARISON: [facility], MR, MR LUMBAR SPINE WO CON, 06/19/2020, 10:59. [facility], CR, XR LUMBAR SPINE 2 OR 3 VIEWS, 07/14/2023, 13:24. FINDINGS: Image quality: Excellent. Alignment and Curvature: Mild levocurvature centered at L3. Trace retrolisthesis of L2 on L3. Mild anterolisthesis of L4 on L5 measuring 4 mm. Bone Marrow: Marrow is of normal overall signal. No acute vertebral body compression fractures. Spinal Cord: Conus medullaris terminates at the top of L2 level. Visualized cord demonstrates normal signal and size. Paraspinous Soft Tissues: No paravertebral masses. T12-L1: No significant change. Disc bulge. No canal stenosis or foraminal stenosis. L1-L2: No significant change. Chronic disc height loss. Disc bulge. Facet hypertrophy. No canal stenosis or foraminal stenosis. L2-L3: Slight interval increase in disc height loss. Diffuse posterior disc bulge. Facet and ligament hypertrophy. Borderline canal stenosis, not significantly changed. Mild bilateral foraminal stenosis. L3-L4: No significant change. Chronic disc height loss. Diffuse posterior disc bulge. Facet hypertrophy. [id number]-[id number] canal stenosis. Brcj-cg-[id number] bilateral foraminal stenosis. L4-L5: Chronic disc height loss. Anterolisthesis of L4 on L5. Disc bulge. Prominent facet and ligament hypertrophy. Severe canal stenosis. Moderate to severe right foraminal narrowing with a degree of right foraminal L4 nerve root impingement. This is slightly progressed. Moderate left foraminal narrowing. L5-S1: Chronic disc height loss. Disc bulge. Facet and ligament hypertrophy. Mild to moderate canal stenosis. Unchanged severe bilateral foraminal narrowing, left greater than right, with bilateral foraminal L5 nerve root impingement. IMPRESSION: 1. Other than interval increase in right foraminal narrowing at L4-L5, findings are stable. 2. Underlying multilevel facet arthropathy. 3. Canal stenosis is borderline at L2-L3, mild to moderate at L3-L4, severe at L4-L5, and mild to moderate at L5-S1. 4. Unchanged multilevel foraminal narrowing as described above. Findings include moderate to severe right foraminal narrowing at L4-L5 and severe bilateral foraminal narrowing at L5-S1. Dictated by: Maik Parikh M.D. on 07/24/2023 at 14:36 Approved by: Maik Parikh M.D. on 07/24/2023 at 14:44
== END ==
PROVIDERS: PCP Nurse Practitioner; Referring Provider Physician Assistant; Visit Provider Physician Assistant
DX: M47.26 Other spondylosis with radiculopathy, lumbar region (principal); M47.27 Other spondylosis with radiculopathy, lumbosacral region; M48.061 Spinal stenosis, lumbar region without neurogenic claudication; M48.07 Spinal stenosis, lumbosacral region
CPT/HCPCS: 72148

== ENCOUNTER 2025-06-29 06:50 | Inpatient (IN) | payer MEDICARE, OTHER, SELFPAY ==
[2022-09-27 13:56] VITALS: BMI 29.0
[2025-06-29] VITALS (24 sets, daily range): BP systolic 102–169; BP diastolic 56–87; PULSE 62–121; RESP 12–26; TEMP 36.2–37.1; O2SAT 92–100; BMI 28.1
--- NOTE | 2025-06-29 | DI.RAD.S_ITS ---
PROCEDURE: XR HIP W PEL IF DONE LT 2V INDICATIONS: LT HIP REDUCTION TECHNIQUE: 2 intraoperative views of the hip were acquired. COMPARISON: [facility], [facility], XR HIP W PEL LT 2V, 06/29/2025, 6:56. [facility], [facility], XR HIP W PEL IF DONE RT 2V, 09/27/2022, 13:18. FINDINGS/IMPRESSION: Intraoperative views during left hip reduction. Arthroplasty appears appropriately aligned. Dictated by: Alex Dunham M.D. on 06/29/2025 at 14:09 Approved by: Alex Dunham M.D. on 06/29/2025 at 14:09
--- NOTE | 2025-06-29 06:55 | DI.RAD.S_ITS ---
PROCEDURE: XR HIP W PEL IF DONE LT 2V INDICATIONS: hip dislocation TECHNIQUE: 3 views of the hip were acquired. COMPARISON: [facility], CR, XR HIP W PEL IF DONE RT 2V, 09/27/2022, 13:18. [facility], CR, XR HIP W PEL IF DONE RT 2V, 10/27/2020, 15:43. FINDINGS: Bones: Changes of bilateral total hip prostheses with posterior dislocation of the left femoral prosthesis relative to the acetabulum. Mild degenerative proliferation of the pubic symphysis. No periprosthetic fracture. Normal alignment of the right prosthesis. Soft tissues: No suspicious soft tissue calcifications or masses. IMPRESSION: Posteriorly dislocated left total hip prosthesis without acute periprosthetic fracture. Dictated by: Melo Garber M.D. on 06/29/2025 at 7:54 Approved by: Melo Garber M.D. on 06/29/2025 at 7:55
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
--- NOTE | 2025-06-29 07:24 | EKG_ITS ---
[address] [address] Test Date: 2025-06-29 Pat Name: Ana Chau Department: Room: Gender: Female Prop Drawer: RENE : 1945 Requested By: Order Number: [id number] Reading MD: Shiv Sampson Measurements Intervals [place] Rate: 76 P: 55 NE: 168 QRS: 11 QRSD: 92 T: 51 QT: 404 QTc: 454 Interpretive Statements Normal sinus rhythm with sinus arrhythmia Electronically Signed On 06-29-2025 9:15:08 PDT by Shiv Sampson
[2025-06-29] MEDS: ACETAMINOPHEN IV 1,000 MG/100 ML VIAL 400 MG IV (07:33)
[2025-06-29] MEDS: ONDANSETRON 4 MG/2 ML INJ IV (07:33)
[2025-06-29] MEDS: fentaNYL 100 MCG/2 ML INJ 50 MCG IV (08:03)
--- NOTE | 2025-06-29 09:00 | EKG_ITS ---
[id number] [place] [address] Test Date: 2025-06-29 Pat Name: Ana Chau Department: Room: [facility] Gender: Female [employer] Supervisor: MARCY : 1945 Requested By: Order Number: [id number] Reading MD: Shiv Sampson Measurements Intervals [place] Rate: 123 P: [place]: QRS: 7 QRSD: 90 T: 124 QT: 328 QTc: 469 Interpretive Statements Accelerated Junctional rhythm Nonspecific ST and T wave abnormality Electronically Signed On 06-29-2025 15:05:35 PDT by Shiv Sampson
--- NOTE | 2025-06-29 09:04 | EKG_ITS ---
[facility] [address] [place] [address] Test Date: 2025-06-29 Pat Name: Ana Chau Department: Room: [facility] Gender: Female Rn [employer]: MARCY : 1945 Requested By: Order Number: [id number] Reading MD: Shiv Sampson Measurements Intervals [place] Rate: 78 P: 52 CA: 162 QRS: 10 QRSD: 88 T: 53 QT: 386 QTc: 440 Interpretive Statements Sinus rhythm with frequent premature ventricular complexes Nonspecific ST and T wave abnormality Electronically Signed On 06-29-2025 15:06:02 PDT by Shiv Sampson
[2025-06-29 09:06] LABS: Hematocrit 35.1 % (36-46); Hemoglobin 12.0 g/dL (12.0-16.0); INR 0.9 (0.9-1.3); Lymphocytes Absolute Auto 1200 /uL (1100-4500); Mean Corpuscular HGB Conc 34.0 % (30-36); Mean Corpuscular Hemoglobin 28.9 PG (26-34); Mean Corpuscular Volume 84.9 fL (80-100); Platelet Count 295 X10^3/uL (150-400); Prothrombin Time 10.7 SECONDS (9.4-12.5)
[2025-06-29 09:10] LABS: Alanine Aminotransferase 15 IU/L (<35); Albumin 4.1 g/dL (3.5-5.0); Albumin Globulin Ratio 1.5 (1.0-2.8); Alkaline Phosphatase 122 U/L (38-126); Blood Urea Nitrogen 30 mg/dL (7-17); Calcium 8.6 mg/dL (8.4-10.2); Carbon Dioxide 19 mmol/L (22-32); Chloride 106 mmol/L (98-107); Estimated Glomerular Filt Rate 54 mL/min (>60); Globulin 2.7 g/dL (1.7-4.1); Glucose 172 mg/dL (70-99); HEMOLYSIS 20 (0-50); Magnesium 1.5 mg/dL (1.6-2.3); Potassium 4.4 mmol/L (3.4-5.1); Sodium 135 mmol/L (137-145); Total Protein 6.8 g/dL (6.3-8.2)
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
[2025-06-29 09:16] LABS: Add Manual Diff / Slide Review SLIDE REVIEW
[2025-06-29 09:17] LABS: RBC Morphology Normal Morphology
[2025-06-29] MEDS: MAGNESIUM SULFATE 2 GM/50 ML PIGGYBACK IV (09:22)
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
[2025-06-29] MEDS: LACTATED RINGERS 1,000 ML 42 ML IV (11:21)
--- NOTE | 2025-06-29 11:22 | PM.PREOP ---
Pre-operative Note COVID-19 COVID-19 status: Not tested Interval Note History & Physical reviewed/Exam performed by Physician: Yes Changes to H&P: No
--- NOTE | 2025-06-29 12:12 | SUR.OPER ---
Supine on padded OR flattop bed, head on pillow, arms secured on padded arm boards at <90 degrees abduction, legs uncrossed, safety belt at thigh, tape over blanket over lower legs.
--- NOTE | 2025-06-29 12:13 | SUR.OPER ---
Supine on padded OR flattop bed, head on pillow, arms secured on padded arm boards at <90 degrees abduction, legs uncrossed, safety belt at chest.
--- NOTE | 2025-06-29 12:24 | PM.OP.1 ---
Operative Date/Time/Diagnoses Date of procedure: 06/29/25 Time of procedure: 12:15 Pre-op diagnosis: left JESSICA hip dislocation Post-op diagnosis: same Procedure & Clinicians Procedure: Left total hip arthroplasty reduction Same procedure(s) as scheduled: Yes Surgeon: Lety Dotson Assisted?: Yes Dump Worker: Chrissy Paula Anesthesia Type: General Operative Notes Findings: see below Closure Type: not applicable Specimen(s): none sent Applied: none Estimated Blood Loss (mL): 0 Blood products transfused: none Procedure in detail: Patient was met in the preoperative hold area her left hip was signed as the correct extremity. She was taken back to the operating room and general anesthesia was induced. She was transitioned to a radiolucent table. Her pelvis was stabilized and her hip was reduced using traction of flexion of the knee to 90? and a little bit of internal and external rotation. There was a palpable clunk. Fluoroscopy was utilized to ensure reduction. The patient was woken and taken to the PACU in stable condition after an abduction brace was placed to her lower extremities. From an orthopedic standpoint she can be discharged home when ready from a medical standpoint. Complications: none Post-operative Condition: stable Disposition: PACU Plan for aftercare: She should be weight-bearing as tolerated with posterior hip precautions Abduction pillow while supine and sleeping. Follow up with Orthopedics after discharge.
--- NOTE | 2025-06-29 12:31 | DI.RAD.S_ITS ---
PROCEDURE: XR HIP W PEL IF DONE LT 2V INDICATIONS: s/p lt hip reduction TECHNIQUE: 2 views of the hip were acquired. [facility], 06/29/2025, 12:17. [facility], XR HIP W PEL LT 2V, 06/29/2025, 6:56. FINDINGS: See impression IMPRESSION: Interval reduction of the left total hip arthroplasty. No periprosthetic fracture. No acute osseous abnormality. Dictated by: Melo Garber M.D. on 06/29/2025 at 12:55 Approved by: Melo Garber M.D. on 06/29/2025 at 12:55
--- NOTE | 2025-06-29 12:50 | SUR.PHASEI ---
Patient has not voided since 0500 this a.m. Denies need to void at this time. Bladder scan reveals 0.00 mls. Abdomen non-distended.
[2025-06-29] MEDS: LACTATED RINGERS 1,000 ML 100 ML IV ×2 (13:32→18:16)
[2025-06-29] MEDS: ACETAMINOPHEN 325 MG TABLET 650 MG PO (13:34)
[2025-06-29] MEDS: IBUPROFEN 400 MG TABLET PO (13:34)
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
[2025-06-29] MEDS: ASPIRIN EC 81 MG TABLET PO (20:14)
[2025-06-29] MEDS: DOCUSATE 100 MG CAPSULE PO (20:14)
[2025-06-30 06:10] LABS: Blood Urea Nitrogen 30 mg/dL (7-17); Calcium 8.4 mg/dL (8.4-10.2); Carbon Dioxide 22 mmol/L (22-32); Chloride 105 mmol/L (98-107); Estimated Glomerular Filt Rate 50 mL/min (>60); Glucose 126 mg/dL (70-99); HEMOLYSIS < 15 (0-50); Magnesium 1.8 mg/dL (1.6-2.3); Potassium 4.5 mmol/L (3.4-5.1); Sodium 136 mmol/L (137-145)
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
[2025-06-30 08:30] VITALS: BP 128/87; PULSE 71; RESP 16; TEMP 36.6; O2SAT 96
[2025-06-30] MEDS: DOCUSATE 100 MG CAPSULE PO (08:33)
[2025-06-30] MEDS: IBUPROFEN 400 MG TABLET PO (08:33)
[2025-06-30] MEDS: ASPIRIN EC 81 MG TABLET PO (08:33)
--- NOTE | 2025-06-30 09:10 | PT.IPTN ---
Current Diagnoses Unspecified dislocation of left hip, initial encounter (06/29/25) Surgery Performed Operation Date: 06/29/25 12:00 Actual Procedures p Closed Reduction Dislocated Hip(Left) - Lety Dotson, Physical Therapy Treatment Note M2 PT-IP Current Condition Start: 06/29/25 15:45 Freq: NEEDED Status: Active Protocol: Document 06/30/25 08:43 SP (Rec: 06/30/25 10:50 SP [id number]) Physical Therapy Current Condition Current Condition Evaluation Date 06/29/25 Treatment Diagnosis Impaired mobility, s/p R hip dislocation w/reduction Onset Date 06/29/25 M3 PT-IP Subjective Start: 06/29/25 15:45 Freq: NEEDED Status: Active Protocol: Document 06/30/25 08:43 SP (Rec: 06/30/25 10:50 SP [id number]) Subjective Physical Therapy Visit Type Type Treatment Note Visit Start Time 08:43 Visit Stop Time 09:10 Notes Son arrived end tx. Number of DIRECTOR CHECK Visits 1 Physical Therapy Visit Comments Patient Comments Pt agreeable to working with DIRECTOR CHECK. Patient Goals To go home and resume baseline mobility M4 PT-IP Mobility and Gait Start: 06/29/25 15:45 Freq: NEEDED Status: Active Protocol: Document 06/30/25 08:43 SP (Rec: 06/30/25 10:50 SP [id number]) PT-Transfer Assessment Sit to and From Stand Sit to and from Standby Assistance Stand Equipment Transfer Assistive Gait Belt,Front Wheeled Walker Device Transfers Transfer Destination Chair Transfer Technique pt ambulated with FWW Transfer Ability Level of Assist Standby Assistance,Use of Upper Extremities Comments Mobility Comments Pt was sitting EOB eating break fast when arrived. STS SBA with FWW, transfer to [facility] CG > close SBA, Completed self pericare. Gait with FWW into hallway to stairs, complete stairs and back to room chair with SBA, wc follow but not needed. Gait Assessment Gait Gait Assistance Standby Assistance Required: Distance (Feet) 150 Able to Maintain Yes Weight Bearing Status During Gait Assistive Devices Assistive Device Gait Belt,Front Wheeled Walker Orthotic/Prosthetic No Devices or Brace: Gait Deviations General Gait Pattern Antalgic,Decreased Stride Length Factors Limiting Gait Function Factors Limiting Decreased Strength Gait Function Comments Gait Comments Cues body positioning close to back legs of FWW Moderate BUE WB on handles recommend use at this time ( has 1 home to use), discussion use brakes when home longer distance. Stair Climbing Assessment Evaluation Level of Assist On Standby Assistance,Contact Guard Assistance Stairs Devices Stair Climbing Straight Cane,Right Railing Assistive Devices Technique/Endurance Stair Climbing Ascend and Descend Direction Number of Steps 3 Climbed Stair Climbing Set # 2 Repetitions (reps) Comments Stair Climbing Cues for step to patterning: lead LLE ascend and RLE Comments descending with SPC positioned advanced step, slow pacing CG> closed SBA, son can provide her. PT-Balance Assessment Sitting Balance and Reactions Static Sitting Normal Balance Ability Dynamic Sitting Normal Balance Ability Standing Balance and Reactions Static Standing Good Balance Ability Dynamic Standing Good Balance Ability Device Used FWW M5 PT-IP Objective Assessments Start: 06/29/25 15:45 Freq: NEEDED Status: Active Protocol: Document 06/29/25 15:45 KJ (Rec: 06/29/25 15:54 KJ [id number]) Orientation Orientation/Cognition Level of Alertness Alert Orientation Name,Age,Birthday,Month,Date,Year,Day of Week,Place, Situation Language Function No Deficits Noted Ability Safety Awareness Understands Safety Issues Memory Description No Deficits Noted Gross Range of Motion Upper Extremity ROM Assessment Within Functional Limits Lower Extremity ROM Assessment Right Impaired Impairments hip Strength Upper Extremity Strength Assessment Within Functional Limits Lower Extremity Strength Ankle bilat plantar/dorsiflex WNL M6 PT-IP Treatment Start: 06/29/25 15:45 Freq: NEEDED Status: Active Protocol: Document 06/30/25 08:43 SP (Rec: 06/30/25 10:50 SP [id number]) Physical Therapy Treatment Education Education Provided Precautions Other Treatments Other Treatment Discussed posterior hip precautions, use wedge sleeping Performed , use adaptive equipment plate shear operator, sock aide for dressing and OT will come in later to give further education safety and how incorporate into ADLs. M7 PT-IP Assessment and Plan Start: 06/29/25 15:45 Freq: NEEDED Status: Active Protocol: Document 06/30/25 08:43 SP (Rec: 06/30/25 10:50 SP [id number]) PT Summary Assessment and Plan Potential Rehabilitation Excellent Potential Status of Condition Evolving at Evaluation Summary Impairments Transfers,Gait,Activity Tolerance Assessment Summary Pt progressed mobiltiy today, CG initially then progressed to SBA with use of FWW, recommended use at time has at home. CUes for maintain WBOS for safety and marching step pivots, proper patterning stair mgt 1 Hr and SPC use SBA today. REcommending HHPT and Assistance needed from son when medically cleared. Pt had call light and all needs in reach before left room, son in room. Goals Bed Mobility Goal Independent Transfer Goal Independent Gait Goal Independent Gait Distance 50 Other Goals ascend/descend 3 steps w/rail + cane and CGA Days to Meet Goals 10 Frequency of Treatment Frequency Of Once a Day Treatment Treatment Plan Physical Therapy Bed Mobility Training,Transfer Training,Gait Training, Treatment Plan Therapeutic Exercise Other Progress to ambulation WBAT Recommendations and Next Treatment Focus Precautions Posterior Hip No Hip Flexion > 90 degrees,No Hip Internal Rotation,No Precautions Hip Adduction Weight Bearing Status Weight Bearing Weight Bear as Tolerated Status Recommendations To Nursing Amount of Assist 1 Person Assist Needed Discharge Recommendations PT Discharge Home with Assistance,Home Health Recommendations Equipment Needed for has FWW home use right now. Home Before Discharge Transportation Needs Private Vehicle at Discharge
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
--- NOTE | 2025-06-30 13:17 | PC.NURSE ---
Pt being discharged home with son in private vehicle. Pt educated on hip precautions with RN and PT. All questions answered and discharge instructions reviewed.
--- NOTE | 2025-06-30 14:03 | CM.DANOTE ---
Iniitial DCP Assessment Visit Note Reviewed EMR and team rounds for pt's medical status and updates. Met with pt at bedside to introduce self and role, pt was found to be alert/oriented, sitting up in the recliner in no apparent distress. Pt resides in her own home with her spouse in [place], she uses a walker for mobility at baseline. She has a local son, Semaj, who helps with transportation and care coordination. Pt has been medically cleared for discharge, her son will transport her home. BELT MAKER HELPER sent referral to [facility] for OP f/u. No further CM d/c needs are identified at this time. Discharge Planning/Care Management Advanced directive, confirm from FAMILY Start: 06/29/25 13:56 Freq: Q24H Status: Discharge Protocol: Document 06/29/25 13:57 CM (Rec: 06/29/25 13:58 CM [id number]) Advance Directive, confirm on record Time 13:58 Person contacted Pt Copy received No CM Discharge Assessment Start: 06/29/25 09:53 Freq: Status: Discharge Protocol: Document 06/30/25 14:01 DPL (Rec: 06/30/25 14:03 DPL [id number]) Discharge Planning Assessment Assigned Discharge MARNIE Jones Breast Splitter Provider Renee Burnett Insurance Medicare Advance Directives? Yes Advance Directives No on File History Provided By Patient,Medical Record Prior Living House Arrangements Household Members spouse Type of Relies on Others transporation used prior to admit Independent with ADL No: modified independent with a walker 's Is patient alert and Yes oriented? Needs Assistance Home Chores / Shopping With Caregiver for No Another DME Already Rented / Bath Bench,Elevated Toilet Seat,FWW / Walker Owned Patient/Family OP PT Therapy Preference Comment No identified home d/c needs at this time. Barriers to No Discharge Discharge Plan Home Transportation Family to provide transport. Arrangement Referrals Initiated None needed Whiteboard Updated Yes in Patient Room with name and ext. # of Health Assessment And Treatment Teacher Review Status In Process Please Provide Date 06/30/25 Initial DC Assessment Was Performed
== END 2025-06-30 13:32 | disposition home health service (06) | DRG 561 ==
LOC: ED 09:12 → AC 09:31
PROVIDERS: Orthopaedic Surgery; Admitting Provider Family Medicine; Emergency Provider Student in an Organized Health Care Education/Training Program; PCP Nurse Practitioner; Referring Provider Student in an Organized Health Care Education/Training Program; Visit Provider Family Medicine
PROC: 0SWSXJZ Revision of Synthetic Substitute in Left Hip Joint, Femoral Surface, External Approach (ICD-10-PCS; principal; 2025-06-29 12:00)
DX: T84.021A Dislocation of internal left hip prosthesis, initial encounter (principal); I49.5 Sick sinus syndrome; E83.42 Hypomagnesemia; I25.10 Atherosclerotic heart disease of native coronary artery without angina pectoris; I10 Essential (primary) hypertension; E11.9 Type 2 diabetes mellitus without complications; E78.5 Hyperlipidemia, unspecified; Y79.2 Prosthetic and other implants, materials and accessory orthopedic devices associated with adverse incidents; Z87.891 Personal history of nicotine dependence; Z95.5 Presence of coronary angioplasty implant and graft; Z79.84 Long term (current) use of oral hypoglycemic drugs
CPT/HCPCS: 27265; 36415; 73502; 76000; 80048; 80053; 82962; 83735; 85025; 85610; 93005; 96365; 96366; 96367; 96375; 97110; 97116; 97161; 97166; 97530; 97535; 99284; J0131; J0330; J2405; J2704; J3010; J3475; J7120